=== PATIENT | female | born 1995 | race Caucasian/White ===

== ENCOUNTER 2016-08-26 00:44 | Emergency (ER) | payer MEDICAID, OTHER ==
[~2016-08-26] VITALS: Ht 165.1 cm; Wt 100.0 kg
[~2016-08-26 00:44] MED LIST: CARB200T6 PO; INSLAN SQ; INSU100C6 SQ; LISI-661 PO; VENL-193 PO
[2016-08-26] MEDS ORDERED: ASPI-1061 PO (01:05)
[2016-08-26] MEDS ORDERED: ASCO500T9 PO (01:05)
[2016-08-26] MEDS ORDERED: ATOR10TA69 PO (01:05)
[2016-08-26] MEDS ORDERED: INSLAN SQ (01:05)
[2016-08-26] MEDS ORDERED: LORA10I IM (01:09)
[2016-08-26] MEDS ORDERED: LACO200T2 PO (01:09)
[2016-08-26] MEDS ORDERED: VENL225T PO (01:09)
[2016-08-26] MEDS ORDERED: QUET50TA PO (01:09)
[2016-08-26 01:11] LABS: GLUCOSE,POINT OF CARE 250 MG/DL (70-110)
[2016-08-26 01:44] LABS: BASOPHILS % (AUTO) 0.3 % (0.0-2.0); EOSINOPHILS % (AUTO) 0.1 % (1.0-6.0); HEMATOCRIT 37.4 % (36-46); HEMOGLOBIN 12.7 g/dL (12.0-16.0); LYMPHOCYTES # (AUTO) 1.5 K/uL (1.0-4.8); LYMPHOCYTES % (AUTO) 32.6 % (22.0-44.0); MEAN CORPUSCULAR HEMOGLOBIN 32.8 pg (26.0-34.0); MEAN CORPUSCULAR HGB CONC 34.1 G/dL (31.0-37.0); MEAN CORPUSCULAR VOLUME 96 fL (80-100); MONOCYTES # (AUTO) 0.3 K/uL (0.1-1.0); MONOCYTES % (AUTO) 6.5 % (2.0-9.0); NEUTROPHILS # (AUTO) 2.9 K/uL (1.8-7.7); NEUTROPHILS % (AUTO) 60.5 % (40.0-70.0); PLATELET COUNT (AUTO) 228 K/uL (150-450); RED BLOOD CELL COUNT(AUTO) 3.88 MIL/uL (4.00-5.20); RED CELL DISTRIBUTION WIDTH 12.8 % (11.5-14.5); WHITE BLOOD COUNT (AUTO) 4.7 K/uL (4.5-11.0)
[2016-08-26] MEDS ORDERED: PHENYTOIN SODIUM 1,000 MG in SODIUM CHLORIDE 0.9% 150 ML IV ONE (02:00)
[2016-08-26 02:03] LABS: ANION GAP 6 mmol/L (8-16); CALCIUM, TOTAL 8.4 mg/dL (8.8-10.5); CARBON DIOXIDE 28 mmol/L (22-29); CHLORIDE 102 mmol/L (98-107); CREATININE 0.71 mg/dL (0.60-1.30); GLOMERULAR FILTR. RATE CALC > 60 mL/min (>60); POTASSIUM 4.7 mmol/L (3.5-5.1); SODIUM SERUM 136 mmol/L (136-145); UREA NITROGEN, BLOOD 14 mg/dL (7-18)
[2016-08-26] MEDS ORDERED: SODIUM CHLORIDE 0.9% 250 ML IV ONE (02:08)
[2016-08-26 02:10] LABS: ALANINE AMINOTRANSFERASE 21 U/L (12-78); ASPARTATE AMINOTRANSFERASE 30 U/L (15-37); BILIRUBIN,TOTAL 0.3 mg/dL (0.1-1.0); TOTAL PROTEIN, SERUM 6.4 g/dL (6.4-8.2)
[2016-08-26 02:13] LABS: APPEARANCE,URINE CLEAR (CLEAR); GLUCOSE, URINE (UA) >=1000 mg/dL (NEGATIVE); KETONES,URINE NEGATIVE (NEGATIVE); LEUKOCYTE ESTERASE ,URINE NEGATIVE (NEGATIVE); OCCULT BLOOD,URINE LARGE (NEGATIVE); PROTEIN,URINE NEGATIVE (NEGATIVE)
[2016-08-26 02:23] LABS: RBC,URINE 51-100 /HPF (0-2); SQUAMOUS EPITHELIAL CELL,UR Few /LPF (None Seen); WBC,URINE 0-2 /HPF (0-5)
[2016-08-26] MEDS ORDERED: MAGN200T5 PO (02:43)
[2016-08-26] MEDS ORDERED: FOLI400 PO (02:43)
[2016-08-26] MEDS ORDERED: NORG1TAB65 PO (02:43)
[2016-08-26] MEDS ORDERED: INSU100C14 SQ (02:43)
[2016-08-26] MEDS ORDERED: CALC-1009 PO (02:43)
[2016-08-26] MEDS ORDERED: ZOLP10TA2 PO (02:43)
[2016-08-26] MEDS ORDERED: LISI-618 PO (02:43)
[2016-08-26] MEDS ORDERED: CARB200T PO (02:43)
[2016-08-26] MEDS ORDERED: MIRT30TA6 PO (02:43)
[2016-08-26 03:27] VITALS: BP 130/69
== END 2016-08-26 04:22 | disposition home or self-care (01) ==
LOC: EMS 00:46
DX: G40.909 Epilepsy, unspecified, not intractable, without status epilepticus (principal); E11.65 Type 2 diabetes mellitus with hyperglycemia; F41.9 Anxiety disorder, unspecified; I10 Essential (primary) hypertension; Z79.4 Long term (current) use of insulin; Z79.82 Long term (current) use of aspirin
CPT/HCPCS: 36415; 80053; 80156; 80307; 81001; 82962; 84703; 85025; 93005; 96365; 99285; G0480; J1165; J7050 ×2

== ENCOUNTER 2016-11-24 10:34 | Emergency (ER) | payer MEDICAID ==
[~2016-11-24] VITALS: Ht 167.6 cm; Wt 100.0 kg
[~2016-11-24 10:34] MED LIST changes: +ASCO500T9 PO; +ASPI-1061 PO; +ATOR10TA69 PO; +CALC-1009 PO; +CARB200T PO; -CARB200T6 PO; +FOLI400 PO; +INSU100C14 SQ; -INSU100C6 SQ; +LACO200T2 PO; +LISI-618 PO; -LISI-661 PO; +LORA10I IM; +MAGN200T5 PO; +MIRT30TA6 PO; +NORG1TAB65 PO; +QUET50TA PO; -VENL-193 PO; +VENL225T PO; +ZOLP10TA2 PO
[2016-11-24 11:02] LABS: GLUCOSE,POINT OF CARE 224 MG/DL (70-110)
[2016-11-24] MEDS ORDERED: PHEN250I PO (11:02)
[2016-11-24] MEDS ORDERED: BISA5TAB12 PO (11:02)
[2016-11-24 11:10] LABS: BASOPHILS % (AUTO) 0.4 % (0.0-2.0); EOSINOPHILS % (AUTO) 0.6 % (1.0-6.0); HEMATOCRIT 36.6 % (36-46); HEMOGLOBIN 12.3 g/dL (12.0-16.0); LYMPHOCYTES # (AUTO) 0.9 K/uL (1.0-4.8); LYMPHOCYTES % (AUTO) 24.5 % (22.0-44.0); MEAN CORPUSCULAR HEMOGLOBIN 32.6 pg (26.0-34.0); MEAN CORPUSCULAR HGB CONC 33.7 G/dL (31.0-37.0); MEAN CORPUSCULAR VOLUME 97 fL (80-100); MONOCYTES # (AUTO) 0.2 K/uL (0.1-1.0); NEUTROPHILS # (AUTO) 2.5 K/uL (1.8-7.7); NEUTROPHILS % (AUTO) 69.5 % (40.0-70.0); PLATELET COUNT (AUTO) 219 K/uL (150-450); RED BLOOD CELL COUNT(AUTO) 3.77 MIL/uL (4.00-5.20); RED CELL DISTRIBUTION WIDTH 13.4 % (11.5-14.5); WHITE BLOOD COUNT (AUTO) 3.6 K/uL (4.5-11.0)
[2016-11-24] MEDS ORDERED: LACT30L PO (11:11)
[2016-11-24 11:21] LABS: ANION GAP 8 mmol/L (8-16); CALCIUM, TOTAL 8.5 mg/dL (8.8-10.5); CARBON DIOXIDE 29 mmol/L (22-29); CHLORIDE 103 mmol/L (98-107); CREATININE 0.79 mg/dL (0.60-1.30); GLOMERULAR FILTR. RATE CALC > 60 mL/min (>60); POTASSIUM 4.4 mmol/L (3.5-5.1); SODIUM SERUM 140 mmol/L (136-145); UREA NITROGEN, BLOOD 13 mg/dL (7-18)
[2016-11-24 11:27] LABS: ALANINE AMINOTRANSFERASE 25 U/L (12-78); ALBUMIN 3.2 g/dL (3.4-5.0); ASPARTATE AMINOTRANSFERASE 20 U/L (15-37); BILIRUBIN,TOTAL 0.3 mg/dL (0.1-1.0); TOTAL PROTEIN, SERUM 6.5 g/dL (6.4-8.2)
[2016-11-24 13:32] LABS: GLUCOSE,POINT OF CARE 151 MG/DL (70-110)
[2016-11-24] MEDS ORDERED: PHENY100 PO (13:53)
[2016-11-24] MEDS ORDERED: VENL-67 PO (13:53)
[2016-11-24 14:09] LABS: APPEARANCE,URINE CLEAR (CLEAR); GLUCOSE, URINE (UA) NEGATIVE (NEGATIVE); KETONES,URINE NEGATIVE (NEGATIVE); LEUKOCYTE ESTERASE ,URINE NEGATIVE (NEGATIVE); OCCULT BLOOD,URINE NEGATIVE (NEGATIVE); PH,URINE 6.5 (5.0-8.0); PROTEIN,URINE NEGATIVE (NEGATIVE)
[2016-11-24 14:15] LABS: ADD UA MICROSCOPIC NO
[2016-11-24 14:24] VITALS: BP 116/80
== END 2016-11-24 15:40 | disposition home or self-care (01) ==
LOC: EMS 10:35 → EEVIPCON 10:35 → EMS 15:40
DX: F32.9 Major depressive disorder, single episode, unspecified (principal); I10 Essential (primary) hypertension; E11.9 Type 2 diabetes mellitus without complications; Z79.82 Long term (current) use of aspirin; Z79.4 Long term (current) use of insulin
CPT/HCPCS: 36415; 80053; 80185; 80307; 81003; 82948; 82962; 84703; 85025; 99284; G0480

== ENCOUNTER 2017-09-19 20:02 | Emergency (ER) | payer MEDICAID ==
[~2017-09-19] VITALS: Ht 165.1 cm; Wt 102.7 kg
[~2017-09-19 20:02] MED LIST changes: -ASPI-1061 PO; +ASPI81TA33 PO; +BISA5TAB12 PO; +LACT30L PO; +PHENY100 PO; +VENL-67 PO; -VENL225T PO
[2017-09-19 21:00] LABS: BASOPHILS % (AUTO) 0.3 % (0.0-2.0); EOSINOPHILS % (AUTO) 0.1 % (1.0-6.0); HEMATOCRIT 37.7 % (36-46); HEMOGLOBIN 13.3 g/dL (12.0-16.0); LYMPHOCYTES # (AUTO) 1.2 K/uL (1.0-4.8); LYMPHOCYTES % (AUTO) 22.7 % (22.0-44.0); MEAN CORPUSCULAR HEMOGLOBIN 33.9 pg (26.0-34.0); MEAN CORPUSCULAR HGB CONC 35.3 G/dL (31.0-37.0); MEAN CORPUSCULAR VOLUME 96 fL (80-100); MONOCYTES # (AUTO) 0.3 K/uL (0.1-1.0); MONOCYTES % (AUTO) 6.7 % (2.0-9.0); NEUTROPHILS # (AUTO) 3.6 K/uL (1.8-7.7); NEUTROPHILS % (AUTO) 70.2 % (40.0-70.0); PLATELET COUNT (AUTO) 188 K/uL (150-450); RED BLOOD CELL COUNT(AUTO) 3.93 MIL/uL (4.00-5.20); RED CELL DISTRIBUTION WIDTH 12.6 % (11.5-14.5)
[2017-09-19 21:02] LABS: ANION GAP 9 mmol/L (8-16); CALCIUM, TOTAL 8.7 mg/dL (8.8-10.5); CARBON DIOXIDE 29 mmol/L (22-29); CHLORIDE 97 mmol/L (98-107); CREATININE 0.82 mg/dL (0.60-1.30); GLOMERULAR FILTR. RATE CALC > 60 mL/min (>60); GLUCOSE,RANDOM 279 mg/dL (70-110); POTASSIUM 4.1 mmol/L (3.5-5.1); SODIUM SERUM 135 mmol/L (136-145); UREA NITROGEN, BLOOD 14 mg/dL (7-18)
[2017-09-19 21:08] LABS: ALANINE AMINOTRANSFERASE 37 U/L (12-78); ALBUMIN 3.4 g/dL (3.4-5.0); ALKALINE PHOSPHATASE 88 U/L (46-116); ASPARTATE AMINOTRANSFERASE 24 U/L (15-37); BILIRUBIN,TOTAL 0.3 mg/dL (0.1-1.0); TOTAL PROTEIN, SERUM 6.6 g/dL (6.4-8.2)
[2017-09-19 21:09] LABS: AMPHET/METH SCREEN,URINE NEGATIVE (NEGATIVE); BARBITURATE SCREEN, URINE NEGATIVE (NEGATIVE); BENZODIAZEPINES SCREEN,URINE NEGATIVE (NEGATIVE); CANNABINOID SCREEN,URINE NEGATIVE (NEGATIVE); COCAINE SCREEN,URINE NEGATIVE (NEGATIVE); METHADONE SCREEN, URINE NEGATIVE (NEGATIVE); OPIATE SCREEN,URINE NEGATIVE (NEGATIVE)
[2017-09-19 21:10] LABS: PHENCYCLIDINE SCREEN,URINE NEGATIVE (NEGATIVE)
[2017-09-19 21:23] LABS: APPEARANCE,URINE CLEAR (CLEAR); BILIRUBIN,URINE NEGATIVE (NEGATIVE); GLUCOSE, URINE (UA) >=1000 mg/dL (NEGATIVE); KETONES,URINE 15 mg/dL (NEGATIVE); LEUKOCYTE ESTERASE ,URINE NEGATIVE (NEGATIVE); NITRATE,URINE NEGATIVE (NEGATIVE); OCCULT BLOOD,URINE NEGATIVE (NEGATIVE); PH,URINE 5.5 (5.0-8.0); PROTEIN,URINE NEGATIVE (NEGATIVE); UROBILINOGEN,URINE 0.2 mg/dL (<=1.0)
[2017-09-19 21:34] LABS: BACTERIA,URINE Rare /HPF (None Seen); RBC,URINE None Seen /HPF (0-2); WBC,URINE None Seen /HPF (0-5)
[2017-09-19 21:35] LABS: SQUAMOUS EPITHELIAL CELL,UR Few /LPF (None Seen)
[2017-09-19 22:03] LABS: GLUCOSE,POINT OF CARE 206 MG/DL (70-110)
[2017-09-19 22:44] VITALS: BP 120/64
== END 2017-09-19 22:45 | disposition home or self-care (01) ==
LOC: EMS 20:04
DX: E11.65 Type 2 diabetes mellitus with hyperglycemia (principal); F60.3 Borderline personality disorder; I10 Essential (primary) hypertension; Z79.4 Long term (current) use of insulin; Z79.82 Long term (current) use of aspirin; Z79.899 Other long term (current) drug therapy; Z88.8 Allergy status to other drugs, medicaments and biological substances
CPT/HCPCS: 36415; 80053; 80307; 81001; 82962; 85025; 99284; G0480

== ENCOUNTER 2017-11-05 22:42 | Emergency (ER) | payer MEDICAID ==
[~2017-11-05] VITALS: Ht 167.6 cm; Wt 90.9 kg
[~2017-11-05 22:42] MED LIST changes: -ASPI81TA33 PO; +ASPI81TA87 PO
[2017-11-05 22:58] LABS: GLUCOSE,POINT OF CARE 111 MG/DL (70-110)
[2017-11-05] MEDS ORDERED: LORA2TAB2 PO (23:04)
[2017-11-05 23:24] LABS: BASOPHILS % (AUTO) 0.5 % (0.0-2.0); EOSINOPHILS % (AUTO) 0.9 % (1.0-6.0); HEMATOCRIT 37.6 % (36-46); HEMOGLOBIN 13.2 g/dL (12.0-16.0); LYMPHOCYTES # (AUTO) 1.7 K/uL (1.0-4.8); LYMPHOCYTES % (AUTO) 43.1 % (22.0-44.0); MEAN CORPUSCULAR HEMOGLOBIN 34.3 pg (26.0-34.0); MEAN CORPUSCULAR HGB CONC 35.1 G/dL (31.0-37.0); MEAN CORPUSCULAR VOLUME 98 fL (80-100); MONOCYTES # (AUTO) 0.3 K/uL (0.1-1.0); NEUTROPHILS # (AUTO) 1.9 K/uL (1.8-7.7); NEUTROPHILS % (AUTO) 47.5 % (40.0-70.0); PLATELET COUNT (AUTO) 238 K/uL (150-450); RED BLOOD CELL COUNT(AUTO) 3.85 MIL/uL (4.00-5.20)
[2017-11-05 23:28] LABS: ANION GAP 6 mmol/L (8-16); CALCIUM, TOTAL 8.6 mg/dL (8.8-10.5); CARBON DIOXIDE 30 mmol/L (22-29); CHLORIDE 102 mmol/L (98-107); CREATININE 0.75 mg/dL (0.60-1.30); GLOMERULAR FILTR. RATE CALC > 60 mL/min (>60); GLUCOSE,RANDOM 99 mg/dL (70-110); SODIUM SERUM 138 mmol/L (136-145); UREA NITROGEN, BLOOD 9 mg/dL (7-18)
[2017-11-05 23:41] LABS: ALANINE AMINOTRANSFERASE 24 U/L (12-78); ALBUMIN 3.3 g/dL (3.4-5.0); ALKALINE PHOSPHATASE 92 U/L (46-116); ASPARTATE AMINOTRANSFERASE 20 U/L (15-37); BILIRUBIN,TOTAL 0.2 mg/dL (0.1-1.0); LIPASE 58 U/L (73-393); TOTAL PROTEIN, SERUM 6.8 g/dL (6.4-8.2)
[2017-11-06] MEDS ORDERED: ONDANSETRON HCL 4 MG TABLET PO ONE (03:15)
[2017-11-06 05:15] VITALS: BP 122/75
== END 2017-11-06 06:22 | disposition home or self-care (01) ==
LOC: EMS 22:43
DX: R19.7 Diarrhea, unspecified (principal); R11.2 Nausea with vomiting, unspecified; F55.2 Abuse of laxatives; K59.00 Constipation, unspecified; F29 Unspecified psychosis not due to a substance or known physiological condition; E11.9 Type 2 diabetes mellitus without complications; I10 Essential (primary) hypertension; Z88.8 Allergy status to other drugs, medicaments and biological substances; Z79.4 Long term (current) use of insulin
CPT/HCPCS: 80053; 82962; 83690; 84703; 85025; 99284; Q0162

== ENCOUNTER 2018-04-17 00:33 | Emergency (ER) | payer MEDICAID ==
[~2018-04-17] VITALS: Ht 167.6 cm; Wt 90.9 kg
[~2018-04-17 00:33] MED LIST changes: -LACO200T2 PO; -LORA10I IM; +LORA2TAB2 PO; -NORG1TAB65 PO
[2018-04-17 00:53] LABS: GLUCOSE,POINT OF CARE 127 MG/DL (70-110)
[2018-04-17] MEDS ORDERED: HYDR25SU38 PR (01:00)
[2018-04-17] MEDS ORDERED: DSS100 PO (01:00)
[2018-04-17] MEDS ORDERED: INSU100V SQ (01:00)
[2018-04-17] MEDS ORDERED: MOME17N NASAL (01:00)
[2018-04-17] MEDS ORDERED: 7030E SQ (01:00)
[2018-04-17] MEDS ORDERED: LORA10I IM (01:00)
[2018-04-17] MEDS ORDERED: DIPH50 PO ×2 (01:00)
[2018-04-17] MEDS ORDERED: NORG1TAB65 PO (01:00)
[2018-04-17] MEDS ORDERED: FAMO20 PO (01:00)
[2018-04-17] MEDS ORDERED: METF-960 PO (01:00)
[2018-04-17] MEDS ORDERED: ACETAMINOPHEN 500 MG TABLET PO ONE (01:30)
[2018-04-17 02:19] LABS: GLUCOSE,POINT OF CARE 36 MG/DL (70-110)
[2018-04-17 02:29] VITALS: BP 120/64
[2018-04-17 02:54] LABS: GLUCOSE,POINT OF CARE 119 MG/DL (70-110)
== END 2018-04-17 05:25 | disposition home or self-care (01) ==
LOC: EMS 00:34
DX: S60.221A Contusion of right hand, initial encounter (principal); S80.12XA Contusion of left lower leg, initial encounter; S80.11XA Contusion of right lower leg, initial encounter; E11.649 Type 2 diabetes mellitus with hypoglycemia without coma; F69 Unspecified disorder of adult personality and behavior; I10 Essential (primary) hypertension; F60.3 Borderline personality disorder; Z88.8 Allergy status to other drugs, medicaments and biological substances; Z79.4 Long term (current) use of insulin; Z79.899 Other long term (current) drug therapy; Z79.82 Long term (current) use of aspirin; W22.01XA Walked into wall, initial encounter; Y93.89 Activity, other specified; Y92.89 Other specified places as the place of occurrence of the external cause; Y99.8 Other external cause status
CPT/HCPCS: 99284

== ENCOUNTER 2018-05-26 20:46 | Emergency (ER) | payer MEDICAID ==
[~2018-05-26] VITALS: Ht 167.6 cm; Wt 88.6 kg
[~2018-05-26 20:46] MED LIST changes: +7030E SQ; +DIPH50 PO; +DSS100 PO; +FAMO20 PO; +HYDR25SU38 PR; +INSU100V SQ; +LORA10I IM; -LORA2TAB2 PO; +METF-960 PO; +MOME17N NASAL; +NORG1TAB65 PO
[2018-05-26] MEDS ORDERED: BRIV50TA PO (21:21)
[2018-05-26] MEDS ORDERED: 7030E SQ (21:22)
[2018-05-26] MEDS ORDERED: ASCO500T9 PO (21:22)
[2018-05-26] MEDS ORDERED: INSULIN HUMAN NPH-REGULAR 70/30 100 UNITS/ML SQ ONE (21:45)
[2018-05-26] MEDS ORDERED: MetFORMIN HCL 500 MG TABLET PO ONE (21:45)
[2018-05-26] MEDS ORDERED: MIRTAZAPINE 30 MG TABLET PO ONE (21:45)
[2018-05-26] MEDS ORDERED: LORazepam 2 MG TABLET PO ONE (21:45)
[2018-05-26 21:54] LABS: BASOPHILS % (AUTO) 0.6 % (0.0-2.0); EOSINOPHILS % (AUTO) 1.2 % (1.0-6.0); HEMATOCRIT 39.8 % (36-46); HEMOGLOBIN 13.6 g/dL (12.0-16.0); LYMPHOCYTES # (AUTO) 1.5 K/uL (1.0-4.8); LYMPHOCYTES % (AUTO) 35.2 % (22.0-44.0); MEAN CORPUSCULAR HGB CONC 34.2 G/dL (31.0-37.0); MEAN CORPUSCULAR VOLUME 99 fL (80-100); MONOCYTES # (AUTO) 0.2 K/uL (0.1-1.0); MONOCYTES % (AUTO) 5.4 % (2.0-9.0); NEUTROPHILS # (AUTO) 2.4 K/uL (1.8-7.7); NEUTROPHILS % (AUTO) 57.6 % (40.0-70.0); PLATELET COUNT (AUTO) 284 K/uL (150-450); RED BLOOD CELL COUNT(AUTO) 4.01 MIL/uL (4.00-5.20); RED CELL DISTRIBUTION WIDTH 12.6 % (11.5-14.5)
[2018-05-26 21:56] LABS: ANION GAP 3 mmol/L (8-16); CALCIUM, TOTAL 8.2 mg/dL (8.8-10.5); CARBON DIOXIDE 32 mmol/L (22-29); CHLORIDE 99 mmol/L (98-107); CREATININE 0.88 mg/dL (0.60-1.30); GLOMERULAR FILTR. RATE CALC > 60 mL/min (>60); GLUCOSE,RANDOM 311 mg/dL (70-110); POTASSIUM 4.3 mmol/L (3.5-5.1); SODIUM SERUM 134 mmol/L (136-145); UREA NITROGEN, BLOOD 10 mg/dL (7-18)
[2018-05-26 21:57] LABS: APPEARANCE,URINE CLEAR (CLEAR); BILIRUBIN,URINE NEGATIVE (NEGATIVE); GLUCOSE, URINE (UA) >=1000 mg/dL (NEGATIVE); KETONES,URINE NEGATIVE (NEGATIVE); LEUKOCYTE ESTERASE ,URINE NEGATIVE (NEGATIVE); NITRATE,URINE NEGATIVE (NEGATIVE); OCCULT BLOOD,URINE NEGATIVE (NEGATIVE); PH,URINE 6.5 (5.0-8.0); PROTEIN,URINE NEGATIVE (NEGATIVE); UROBILINOGEN,URINE 0.2 mg/dL (<=1.0)
[2018-05-26 22:02] LABS: ALANINE AMINOTRANSFERASE 39 U/L (12-78); ALBUMIN 3.3 g/dL (3.4-5.0); ALKALINE PHOSPHATASE 91 U/L (46-116); ASPARTATE AMINOTRANSFERASE 37 U/L (15-37); BILIRUBIN,TOTAL 0.2 mg/dL (0.1-1.0); CARBAMAZEPINE (TEGRETOL) 3.7 mcg/mL (4.0-12.0); PHENYTOIN (DILANTIN) 15.8 mcg/mL (10.0-20.0)
[2018-05-26 22:08] LABS: AMPHET/METH SCREEN,URINE NEGATIVE (NEGATIVE); BARBITURATE SCREEN, URINE NEGATIVE (NEGATIVE); BENZODIAZEPINES SCREEN,URINE NEGATIVE (NEGATIVE); CANNABINOID SCREEN,URINE NEGATIVE (NEGATIVE); COCAINE SCREEN,URINE NEGATIVE (NEGATIVE); METHADONE SCREEN, URINE NEGATIVE (NEGATIVE); OPIATE SCREEN,URINE NEGATIVE (NEGATIVE)
[2018-05-26 22:10] LABS: BACTERIA,URINE Few /HPF (None Seen); SQUAMOUS EPITHELIAL CELL,UR Moderate /LPF (None Seen)
[2018-05-26 22:11] LABS: RBC,URINE None Seen /HPF (0-2); WBC,URINE 0-2 /HPF (0-5)
[2018-05-26 22:13] LABS: PHENCYCLIDINE SCREEN,URINE NEGATIVE (NEGATIVE)
[2018-05-26] MEDS ORDERED: PHENYTOIN SODIUM 100 MG ER CAPSULE PO ONE (22:15)
[2018-05-26] MEDS ORDERED: CarBAMazepine 200 MG TABLET PO ONE (22:15)
[2018-05-26 23:47] LABS: GLUCOSE,POINT OF CARE 256 MG/DL (70-110)
[2018-05-27 01:32] VITALS: BP 107/69
== END 2018-05-27 01:48 | disposition home or self-care (01) ==
LOC: EMS 20:48
DX: E11.65 Type 2 diabetes mellitus with hyperglycemia (principal); F41.9 Anxiety disorder, unspecified; R53.1 Weakness; I10 Essential (primary) hypertension; E11.9 Type 2 diabetes mellitus without complications; F32.9 Major depressive disorder, single episode, unspecified; Z79.4 Long term (current) use of insulin; Z79.82 Long term (current) use of aspirin; Z88.8 Allergy status to other drugs, medicaments and biological substances; Z79.899 Other long term (current) drug therapy
CPT/HCPCS: 36415; 80053; 80156; 80185; 80307; 81001; 82962; 84703; 85025; 96372; 99284; J1815

== ENCOUNTER 2018-07-20 15:10 | Emergency (ER) | payer MEDICAID ==
[~2018-07-20] VITALS: Ht 167.6 cm; Wt 100.0 kg
[~2018-07-20 15:10] MED LIST changes: +BRIV50TA PO; -DSS100 PO; -FAMO20 PO; -INSLAN SQ; -INSU100V SQ; -QUET50TA PO
[2018-07-20] MEDS ORDERED: FOLI0.8T PO (15:43)
[2018-07-20] MEDS ORDERED: ONDA4 PO (15:43)
[2018-07-20] MEDS ORDERED: INSLAN SQ (15:43)
[2018-07-20] MEDS ORDERED: DIPH25 PO (16:01)
[2018-07-20] MEDS ORDERED: PROM25 PO (16:01)
[2018-07-20] MEDS ORDERED: IBUP-2071 PO (16:01)
[2018-07-20] MEDS ORDERED: METF-445 PO (16:01)
[2018-07-20] MEDS ORDERED: FAMO20 PO (16:01)
[2018-07-20] MEDS ORDERED: GLIP5 PO (16:01)
[2018-07-20] MEDS ORDERED: KETO5DRO75 OU (16:01)
[2018-07-20] MEDS ORDERED: HYPR15DR23 OU (16:01)
[2018-07-20] MEDS ORDERED: GUAI100L55 PO (16:01)
[2018-07-20] MEDS ORDERED: BENZ1LOZ68 PO (16:01)
[2018-07-20] MEDS ORDERED: MOM30 PO (16:02)
[2018-07-20] MEDS ORDERED: LOPE2 PO (16:02)
[2018-07-20] MEDS ORDERED: ASCO500 PO (16:02)
[2018-07-20] MEDS ORDERED: SIME125C PO (16:02)
[2018-07-20] MEDS ORDERED: FE PR (16:02)
[2018-07-20] MEDS ORDERED: CARB15DR94 OU (16:02)
[2018-07-20] MEDS ORDERED: ACET-2247 PO (16:02)
[2018-07-20] MEDS ORDERED: MULT-264 PO (16:02)
[2018-07-20] MEDS: DICYCLOMINE HCL 20 MG TABLET PO ONE (16:24)
[2018-07-20] MEDS: SODIUM CHLORIDE 0.9% 1,000 ML IV ONE ×2 (16:24→18:54)
[2018-07-20] MEDS: METOCLOPRAMIDE HCL 5 MG/ML 2 ML VIAL IVP ONE (16:24)
[2018-07-20 16:38] LABS: EOSINOPHILS % (AUTO) 0.1 % (1.0-6.0); HEMATOCRIT 41.5 % (36-46); HEMOGLOBIN 14.5 g/dL (12.0-16.0); LYMPHOCYTES # (AUTO) 0.2 K/uL (1.0-4.8); LYMPHOCYTES % (AUTO) 3.1 % (22.0-44.0); MEAN CORPUSCULAR HEMOGLOBIN 34.7 pg (26.0-34.0); MEAN CORPUSCULAR HGB CONC 35.1 G/dL (31.0-37.0); MEAN CORPUSCULAR VOLUME 99 fL (80-100); MONOCYTES # (AUTO) 0.2 K/uL (0.1-1.0); MONOCYTES % (AUTO) 3.3 % (2.0-9.0); NEUTROPHILS # (AUTO) 5.7 K/uL (1.8-7.7); PLATELET COUNT (AUTO) 232 K/uL (150-450); RED CELL DISTRIBUTION WIDTH 12.9 % (11.5-14.5)
[2018-07-20 16:40] LABS: NEUTROPHILS % (AUTO) 93.5 % (40.0-70.0)
[2018-07-20 16:45] LABS: ANION GAP 8 mmol/L (8-16); CALCIUM, TOTAL 8.2 mg/dL (8.8-10.5); CARBON DIOXIDE 29 mmol/L (22-29); CHLORIDE 102 mmol/L (98-107); CREATININE 0.57 mg/dL (0.60-1.30); GLOMERULAR FILTR. RATE CALC > 60 mL/min (>60); GLUCOSE,RANDOM 140 mg/dL (70-110); POTASSIUM 4.2 mmol/L (3.5-5.1); SODIUM SERUM 139 mmol/L (136-145); UREA NITROGEN, BLOOD 15 mg/dL (7-18)
[2018-07-20 16:58] LABS: ALANINE AMINOTRANSFERASE 32 U/L (12-78); ALBUMIN 3.3 g/dL (3.4-5.0); ALKALINE PHOSPHATASE 75 U/L (46-116); ASPARTATE AMINOTRANSFERASE 27 U/L (15-37); BILIRUBIN,TOTAL 0.3 mg/dL (0.1-1.0); HCG,QUANTITATIVE < 1 mIU/mL (0-6); LIPASE 60 U/L (73-393); TOTAL PROTEIN, SERUM 6.3 g/dL (6.4-8.2)
[2018-07-20 18:19] LABS: APPEARANCE,URINE CLEAR (CLEAR); GLUCOSE, URINE (UA) NEGATIVE (NEGATIVE); KETONES,URINE >=80 mg/dL (NEGATIVE); LEUKOCYTE ESTERASE ,URINE TRACE (NEGATIVE); NITRATE,URINE NEGATIVE (NEGATIVE); OCCULT BLOOD,URINE NEGATIVE (NEGATIVE); PH,URINE 7.5 (5.0-8.0); PROTEIN,URINE TRACE (NEGATIVE); UROBILINOGEN,URINE 0.2 mg/dL (<=1.0)
[2018-07-20 18:20] LABS: BILIRUBIN,URINE PRELIM. POSITIVE (NEGATIVE)
[2018-07-20 18:40] LABS: RBC,URINE None Seen /HPF (0-2); WBC,URINE 0-2 /HPF (0-5)
[2018-07-20 18:41] LABS: BACTERIA,URINE None Seen /HPF (None Seen); SQUAMOUS EPITHELIAL CELL,UR Moderate /LPF (None Seen)
[2018-07-20] MEDS ORDERED: MAGOX PO (19:03)
[2018-07-20 19:46] VITALS: BP 106/69
[2018-07-20] MEDS: ONDANSETRON HCL 4 MG/2 ML VIAL IVP ONE (19:55)
== END 2018-07-20 19:52 | disposition home or self-care (01) ==
LOC: EMS 15:10
DX: E86.0 Dehydration (principal); G43.909 Migraine, unspecified, not intractable, without status migrainosus; E11.9 Type 2 diabetes mellitus without complications; I10 Essential (primary) hypertension; F32.9 Major depressive disorder, single episode, unspecified; Z79.899 Other long term (current) drug therapy; Z79.82 Long term (current) use of aspirin; Z79.4 Long term (current) use of insulin; Z88.8 Allergy status to other drugs, medicaments and biological substances; Z79.84 Long term (current) use of oral hypoglycemic drugs
CPT/HCPCS: 36415; 80053; 81001; 83690; 84702; 85025; 96361; 96374; 96375; 99283; J2405; J2765; J7030

== ENCOUNTER 2018-08-04 16:11 | Emergency (ER) | payer MEDICAID ==
[~2018-08-04] VITALS: Ht 167.6 cm; Wt 86.4 kg
[~2018-08-04 16:11] MED LIST changes: -7030E SQ; +ACET-2247 PO; +ASCO500 PO; -ASCO500T9 PO; +BENZ1LOZ68 PO; +CARB15DR94 OU; +DIPH25 PO; -DIPH50 PO; +FAMO20 PO; +FE PR; +FOLI0.8T PO; -FOLI400 PO; +GLIP5 PO; +GUAI100L55 PO; +HYPR15DR23 OU; +IBUP-2071 PO; +INSLAN SQ; +KETO5DRO75 OU; +LOPE2 PO; -MAGN200T5 PO; +MAGOX PO; +METF-445 PO; -METF-960 PO; +MOM30 PO; +MULT-264 PO; +ONDA4 PO; +PROM25 PO; +SIME125C PO
[2018-08-04] MEDS ORDERED: IBUPROFEN 800 MG TABLET PO ONE (19:30)
[2018-08-04 19:43] VITALS: BP 118/71
== END 2018-08-04 19:47 | disposition home or self-care (01) ==
LOC: EMS 16:11
DX: S60.211A Contusion of right wrist, initial encounter (principal); S00.83XA Contusion of other part of head, initial encounter; I10 Essential (primary) hypertension; E11.9 Type 2 diabetes mellitus without complications; Z88.8 Allergy status to other drugs, medicaments and biological substances; Z79.4 Long term (current) use of insulin; Z79.899 Other long term (current) drug therapy; W22.8XXA Striking against or struck by other objects, initial encounter; Y93.89 Activity, other specified; Y92.89 Other specified places as the place of occurrence of the external cause; Y99.8 Other external cause status

== ENCOUNTER 2018-10-08 14:43 | Inpatient (IN) | payer MEDICAID ==
[~2018-10-08] VITALS: Ht 162.6 cm; Wt 90.2 kg
[2018-10-08 17:26] LABS: BASOPHILS % (AUTO) 0.5 % (0.0-2.0); EOSINOPHILS % (AUTO) 1.6 % (1.0-6.0); HEMATOCRIT 36.3 % (36-46); HEMOGLOBIN 12.4 g/dL (12.0-16.0); LYMPHOCYTES # (AUTO) 1.4 K/uL (1.0-4.8); MEAN CORPUSCULAR HEMOGLOBIN 33.9 pg (26.0-34.0); MEAN CORPUSCULAR HGB CONC 34.3 G/dL (31.0-37.0); MEAN CORPUSCULAR VOLUME 99 fL (80-100); MONOCYTES # (AUTO) 0.3 K/uL (0.1-1.0); MONOCYTES % (AUTO) 7.6 % (2.0-9.0); NEUTROPHILS # (AUTO) 2.1 K/uL (1.8-7.7); NEUTROPHILS % (AUTO) 54.3 % (40.0-70.0); PLATELET COUNT (AUTO) 244 K/uL (150-450); RED BLOOD CELL COUNT(AUTO) 3.67 MIL/uL (4.00-5.20); RED CELL DISTRIBUTION WIDTH 13.2 % (11.5-14.5)
[2018-10-08 17:27] LABS: ANION GAP 7 mmol/L (8-16); CALCIUM, TOTAL 8.7 mg/dL (8.8-10.5); CARBON DIOXIDE 28 mmol/L (22-29); CHLORIDE 102 mmol/L (98-107); CREATININE 0.55 mg/dL (0.60-1.30); GLOMERULAR FILTR. RATE CALC > 60 mL/min (>60); GLUCOSE,RANDOM 116 mg/dL (70-110); SODIUM SERUM 137 mmol/L (136-145); UREA NITROGEN, BLOOD 9 mg/dL (7-18)
[2018-10-08 17:48] LABS: ALANINE AMINOTRANSFERASE 30 U/L (12-78); ALBUMIN 3.3 g/dL (3.4-5.0); ALKALINE PHOSPHATASE 72 U/L (46-116); ASPARTATE AMINOTRANSFERASE 30 U/L (15-37); BILIRUBIN,TOTAL 0.2 mg/dL (0.1-1.0); HCG,QUANTITATIVE < 1 mIU/mL (0-6); TOTAL PROTEIN, SERUM 6.1 g/dL (6.4-8.2)
[2018-10-08 18:33] LABS: PHENYTOIN (DILANTIN) 14.2 mcg/mL (10.0-20.0)
[2018-10-08] MEDS ORDERED: SODIUM CHLORIDE 0.9% 100 ML ONE (21:12)
[2018-10-08] MEDS ORDERED: IOVERSOL 320 MG/ML 100 ML VIAL ONE (21:12)
[2018-10-08] MEDS ORDERED: SODIUM CHLORIDE 0.9% 1,000 ML IV ONE (21:15)
[2018-10-08 21:32] LABS: INR 0.9 (0.9-1.1); PROTHROMBIN TIME 9.5 SEC (9.4-11.6)
[2018-10-08 21:44] LABS: AMPHET/METH SCREEN,URINE NEGATIVE (NEGATIVE); BARBITURATE SCREEN, URINE NEGATIVE (NEGATIVE); BENZODIAZEPINES SCREEN,URINE NEGATIVE (NEGATIVE); CANNABINOID SCREEN,URINE NEGATIVE (NEGATIVE); COCAINE SCREEN,URINE NEGATIVE (NEGATIVE); METHADONE SCREEN, URINE NEGATIVE (NEGATIVE); OPIATE SCREEN,URINE NEGATIVE (NEGATIVE)
[2018-10-08 21:47] LABS: PHENCYCLIDINE SCREEN,URINE NEGATIVE (NEGATIVE)
[2018-10-09] MEDS ORDERED: POTASSIUM CHL 20 MEQ/D5-0.45NS 1,000 ML IV ONE (02:45)
[2018-10-09] MEDS ORDERED: ONDANSETRON HCL 4 MG/2 ML VIAL IVP PRN ×2 (02:45→10:15)
[2018-10-09] MEDS ORDERED: 0.9% SODIUM CHLORIDE 10 ML SYRINGE IVP PRN ×2 (02:45→10:15)
[2018-10-09 03:48] VITALS: BP 109/60
[2018-10-09 07:52] VITALS: BP 113/71
[2018-10-09] MEDS: INSULIN GLARGINE,HUM.REC.ANLOG 100 UNITS/ML SQ SCH ×2 (10:15→23:02)
[2018-10-09] MEDS ORDERED: VENLAFAXINE HCL 75 MG ER CAPSULE PO SCH (10:15)
[2018-10-09] MEDS ORDERED: [UNRECOGNIZED DRUG - OTHER] PO SCH (10:15)
[2018-10-09] MEDS ORDERED: INSULIN LISPRO 100 UNITS/ML SQ PRN (10:15)
[2018-10-09] MEDS ORDERED: GLUCAGON,HUMAN RECOMBINANT 1 MG VIAL IM PRN (10:15)
[2018-10-09] MEDS ORDERED: LORAZEPAM 2 MG/ML IV PRN (10:15)
[2018-10-09] MEDS ORDERED: FentaNYL CITRATE-PF 100 MCG/2 ML VIAL IVP PRN (10:30)
[2018-10-09] MEDS ORDERED: PEG 3350/NA SULF,BICARB,CL/KCL 4000 ML SOLUTION PO ONE (11:30)
[2018-10-09] MEDS ORDERED: LORazepam 2 MG/ML VIAL IVP PRN (11:30)
[2018-10-09] MEDS ORDERED: DEXTROSE 50%-WATER 25 GM/50 ML SYRINGE IVP PRN (11:30)
[2018-10-09] MEDS ORDERED: FentaNYL CITRATE-PF 100 MCG/2 ML VIAL IVP ONE (12:00)
[2018-10-09] MEDS ORDERED: MIDAZOLAM HCL 2 MG/2 ML VIAL IVP ONE (12:00)
[2018-10-09] MEDS ORDERED: PROPOFOL 1% 20 ML VIAL IVP ONE (12:00)
[2018-10-09] MEDS ORDERED: ONDANSETRON HCL 4 MG/2 ML VIAL IVP ONE (12:00)
[2018-10-09] MEDS ORDERED: LIDOCAINE/PF 2% 5 ML VIAL INJ ONE (12:00)
[2018-10-09] MEDS ORDERED: SUCCINYLCHOLINE CHLORIDE 20 MG/ML 10 ML VIAL IVP ONE (12:00)
[2018-10-09] MEDS ORDERED: DEXAMETHASONE SOD PHOS 4 MG/ML VIAL IVP ONE (12:00)
[2018-10-09 13:14] VITALS: BP 112/71
[2018-10-09] MEDS: LISINOPRIL 20 MG TABLET PO SCH (13:28)
[2018-10-09] MEDS: PHENYTOIN SODIUM 100 MG ER CAPSULE PO SCH (13:28)
[2018-10-09] MEDS: PANTOPRAZOLE SODIUM 40 MG/VIAL IVP SCH (13:29)
[2018-10-09 15:34] VITALS: BP 110/69
[2018-10-09] MEDS ORDERED: LORazepam 2 MG TABLET PO PRN (16:15)
[2018-10-09] MEDS ORDERED: HALOPERIDOL 5 MG TABLET PO PRN (16:15)
[2018-10-09] MEDS ORDERED: ZOLPIDEM TARTRATE 10 MG TABLET PO PRN (16:15)
[2018-10-09] MEDS ORDERED: MetFORMIN HCL 850 MG TABLET PO SCH (18:00)
[2018-10-09] MEDS: INSULIN LISPRO 100 UNITS/ML SQ PRN (18:11)
[2018-10-09] MEDS ORDERED: INSULIN LISPRO 100 UNITS/ML SQ ONE (18:15)
[2018-10-09] MEDS: LevETIRAcetam 500 MG TABLET PO SCH (19:58)
[2018-10-09] MEDS: ATORVASTATIN CALCIUM 10 MG TABLET PO SCH (19:58)
[2018-10-09] MEDS: OXYGEN THERAPY IH SCH (20:00)
[2018-10-09 20:08] LABS: GLUCOMETER DEV NAME(LOC) 6N.2; GLUCOSE,POINT OF CARE 520 MG/DL (70-110)
[2018-10-09] MEDS ORDERED: ZOLPIDEM TARTRATE 10 MG TABLET PO SCH (21:00)
[2018-10-09] MEDS ORDERED: MIRTAZAPINE 30 MG TABLET PO SCH (21:00)
[2018-10-09 23:15] VITALS: BP 97/49
[2018-10-09 23:53] LABS: GLUCOMETER DEV NAME(LOC) 5S.2; GLUCOSE,POINT OF CARE 203 MG/DL (70-110)
[2018-10-10 05:32] VITALS: BP 92/52
[2018-10-10 07:39] VITALS: BP 86/50
[2018-10-10] MEDS: ASPIRIN 81 MG EC TABLET PO SCH (08:45)
[2018-10-10] MEDS: LevETIRAcetam 500 MG TABLET PO SCH ×2 (08:45→19:37)
[2018-10-10] MEDS: CarBAMazepine 200 MG TABLET PO SCH (08:45)
[2018-10-10] MEDS: VENLAFAXINE HCL 75 MG ER CAPSULE PO SCH (08:46)
[2018-10-10] MEDS: PANTOPRAZOLE SODIUM 40 MG/VIAL IVP SCH (08:46)
[2018-10-10] MEDS: ARIPiprazole 10 MG TABLET PO SCH (08:46)
[2018-10-10] MEDS: LISINOPRIL 20 MG TABLET PO SCH (09:00)
[2018-10-10] MEDS: INSULIN GLARGINE,HUM.REC.ANLOG 100 UNITS/ML SQ SCH ×2 (09:44→21:39)
[2018-10-10] MEDS: PHENYTOIN SODIUM 100 MG ER CAPSULE PO SCH (09:47)
[2018-10-10 11:19] LABS: BASOPHILS % (AUTO) 0.3 % (0.0-2.0); EOSINOPHILS % (AUTO) 1.2 % (1.0-6.0); HEMATOCRIT 35.9 % (36-46); HEMOGLOBIN 12.2 g/dL (12.0-16.0); LYMPHOCYTES # (AUTO) 0.8 K/uL (1.0-4.8); LYMPHOCYTES % (AUTO) 22.6 % (22.0-44.0); MEAN CORPUSCULAR HEMOGLOBIN 33.8 pg (26.0-34.0); MEAN CORPUSCULAR HGB CONC 33.9 G/dL (31.0-37.0); MEAN CORPUSCULAR VOLUME 100 fL (80-100); MONOCYTES # (AUTO) 0.1 K/uL (0.1-1.0); MONOCYTES % (AUTO) 3.7 % (2.0-9.0); NEUTROPHILS # (AUTO) 2.7 K/uL (1.8-7.7); NEUTROPHILS % (AUTO) 72.2 % (40.0-70.0); PLATELET COUNT (AUTO) 212 K/uL (150-450)
[2018-10-10 11:35] VITALS: BP 94/51
[2018-10-10 11:48] LABS: GLUCOMETER DEV NAME(LOC) 5N.2; GLUCOSE,POINT OF CARE 127 MG/DL (70-110)
[2018-10-10] MEDS: INSULIN LISPRO 100 UNITS/ML SQ PRN ×3 (12:41→21:41)
[2018-10-10 13:34] LABS: GLUCOMETER DEV NAME(LOC) 5N.2; GLUCOSE,POINT OF CARE 315 MG/DL (70-110)
[2018-10-10 16:32] VITALS: BP 99/52
[2018-10-10 18:38] LABS: GLUCOMETER DEV NAME(LOC) 5S.2; GLUCOSE,POINT OF CARE 216 MG/DL (70-110)
[2018-10-10 19:15] VITALS: BP 116/66
[2018-10-10] MEDS: MIRTAZAPINE 15 MG TABLET PO SCH (19:37)
[2018-10-10] MEDS: ATORVASTATIN CALCIUM 10 MG TABLET PO SCH (19:37)
[2018-10-10 23:19] LABS: GLUCOMETER DEV NAME(LOC) 5N.2; GLUCOSE,POINT OF CARE 360 MG/DL (70-110)
[2018-10-10 23:22] VITALS: BP 114/64
[2018-10-11] MEDS: INSULIN LISPRO 100 UNITS/ML SQ PRN ×4 (05:54→20:14)
[2018-10-11 06:23] LABS: ANION GAP 7 mmol/L (8-16); CALCIUM, TOTAL 8.5 mg/dL (8.8-10.5); CARBON DIOXIDE 28 mmol/L (22-29); CHLORIDE 102 mmol/L (98-107); CREATININE 0.57 mg/dL (0.60-1.30); GLOMERULAR FILTR. RATE CALC > 60 mL/min (>60); GLUCOSE,RANDOM 148 mg/dL (70-110); POTASSIUM 4.4 mmol/L (3.5-5.1); SODIUM SERUM 137 mmol/L (136-145); UREA NITROGEN, BLOOD 3 mg/dL (7-18)
[2018-10-11 07:29] LABS: GLUCOMETER DEV NAME(LOC) 5N.2; GLUCOSE,POINT OF CARE 170 MG/DL (70-110)
[2018-10-11 07:36] VITALS: BP 110/67
[2018-10-11] MEDS: PHENYTOIN SODIUM 100 MG ER CAPSULE PO SCH (08:30)
[2018-10-11] MEDS: PANTOPRAZOLE SODIUM 40 MG/VIAL IVP SCH (08:30)
[2018-10-11] MEDS: ASPIRIN 81 MG EC TABLET PO SCH (08:30)
[2018-10-11] MEDS: ARIPiprazole 10 MG TABLET PO SCH (08:30)
[2018-10-11] MEDS: VENLAFAXINE HCL 75 MG ER CAPSULE PO SCH (08:31)
[2018-10-11] MEDS: LISINOPRIL 20 MG TABLET PO SCH (08:31)
[2018-10-11] MEDS: CarBAMazepine 200 MG TABLET PO SCH (08:31)
[2018-10-11] MEDS: LevETIRAcetam 500 MG TABLET PO SCH ×2 (08:31→20:12)
[2018-10-11] MEDS: INSULIN GLARGINE,HUM.REC.ANLOG 100 UNITS/ML SQ SCH ×2 (08:55→20:16)
[2018-10-11] MEDS: TraMADol HCL 50 MG TABLET PO PRN ×2 (08:55→18:06)
[2018-10-11 09:49] LABS: BASOPHILS % (AUTO) 0.6 % (0.0-2.0); EOSINOPHILS % (AUTO) 0.7 % (1.0-6.0); HEMATOCRIT 35.4 % (36-46); HEMOGLOBIN 11.9 g/dL (12.0-16.0); LYMPHOCYTES # (AUTO) 0.9 K/uL (1.0-4.8); LYMPHOCYTES % (AUTO) 27.8 % (22.0-44.0); MEAN CORPUSCULAR HEMOGLOBIN 33.9 pg (26.0-34.0); MEAN CORPUSCULAR HGB CONC 33.7 G/dL (31.0-37.0); MEAN CORPUSCULAR VOLUME 101 fL (80-100); MONOCYTES # (AUTO) 0.2 K/uL (0.1-1.0); MONOCYTES % (AUTO) 7.5 % (2.0-9.0); NEUTROPHILS % (AUTO) 63.4 % (40.0-70.0); PLATELET COUNT (AUTO) 220 K/uL (150-450); RED BLOOD CELL COUNT(AUTO) 3.52 MIL/uL (4.00-5.20)
[2018-10-11 11:23] VITALS: BP 99/57
[2018-10-11] MEDS ORDERED: INSULIN LISPRO 100 UNITS/ML SQ ONE (12:00)
[2018-10-11] MEDS ORDERED: DEXTROSE 50%-WATER 25 GM/50 ML SYRINGE IVP PRN (14:30)
[2018-10-11 16:59] VITALS: BP 111/65
[2018-10-11 19:45] VITALS: BP 109/63
[2018-10-11] MEDS: OXYGEN THERAPY IH SCH (20:00)
[2018-10-11 20:11] LABS: GLUCOMETER DEV NAME(LOC) 5S.2; GLUCOSE,POINT OF CARE 562 MG/DL (70-110)
[2018-10-11 20:11] LABS: GLUCOMETER DEV NAME(LOC) 5S.2; GLUCOSE,POINT OF CARE 188 MG/DL (70-110)
[2018-10-11] MEDS: MIRTAZAPINE 15 MG TABLET PO SCH (20:12)
[2018-10-11] MEDS: ATORVASTATIN CALCIUM 10 MG TABLET PO SCH (20:12)
[2018-10-11 20:35] LABS: GLUCOMETER DEV NAME(LOC) 5S.2; GLUCOSE,POINT OF CARE 179 MG/DL (70-110)
[2018-10-11 23:30] VITALS: BP 112/60
[2018-10-12 04:45] VITALS: BP 108/56
[2018-10-12] MEDS: INSULIN LISPRO 100 UNITS/ML SQ PRN ×4 (05:41→21:15)
[2018-10-12 05:53] LABS: GLUCOMETER DEV NAME(LOC) 5N.2; GLUCOSE,POINT OF CARE 285 MG/DL (70-110)
[2018-10-12] MEDS: OXYGEN THERAPY IH SCH ×2 (08:00→21:06)
[2018-10-12 08:30] VITALS: BP 126/75
[2018-10-12] MEDS: CarBAMazepine 200 MG TABLET PO SCH (08:58)
[2018-10-12] MEDS: ARIPiprazole 10 MG TABLET PO SCH (08:58)
[2018-10-12] MEDS: PANTOPRAZOLE SODIUM 40 MG/VIAL IVP SCH (08:59)
[2018-10-12] MEDS: VENLAFAXINE HCL 75 MG ER CAPSULE PO SCH (08:59)
[2018-10-12] MEDS: ASPIRIN 81 MG EC TABLET PO SCH (08:59)
[2018-10-12] MEDS: LevETIRAcetam 500 MG TABLET PO SCH ×2 (08:59→21:07)
[2018-10-12] MEDS: LISINOPRIL 20 MG TABLET PO SCH (08:59)
[2018-10-12] MEDS: PHENYTOIN SODIUM 100 MG ER CAPSULE PO SCH (08:59)
[2018-10-12] MEDS: INSULIN GLARGINE,HUM.REC.ANLOG 100 UNITS/ML SQ SCH ×2 (09:11→21:12)
[2018-10-12 11:23] VITALS: BP 129/54
[2018-10-12 11:54] LABS: GLUCOMETER DEV NAME(LOC) 5S.2; GLUCOSE,POINT OF CARE 247 MG/DL (70-110)
[2018-10-12 12:00] VITALS: BP 117/76
[2018-10-12 18:44] LABS: GLUCOMETER DEV NAME(LOC) 5S.2; GLUCOSE,POINT OF CARE 370 MG/DL (70-110)
[2018-10-12 19:37] VITALS: BP 115/65
[2018-10-12] MEDS: ATORVASTATIN CALCIUM 10 MG TABLET PO SCH (21:08)
[2018-10-12] MEDS: MIRTAZAPINE 15 MG TABLET PO SCH (21:08)
[2018-10-12] MEDS: TraMADol HCL 50 MG TABLET PO PRN (21:28)
[2018-10-12 23:15] VITALS: BP 110/65
[2018-10-12 23:44] LABS: GLUCOMETER DEV NAME(LOC) 5N.2; GLUCOSE,POINT OF CARE 297 MG/DL (70-110)
[2018-10-13 03:24] VITALS: BP 109/63
[2018-10-13 07:19] VITALS: BP 105/66
[2018-10-13] MEDS: OXYGEN THERAPY IH SCH (08:00)
[2018-10-13] MEDS: PANTOPRAZOLE SODIUM 40 MG/VIAL IVP SCH (09:09)
[2018-10-13] MEDS: PHENYTOIN SODIUM 100 MG ER CAPSULE PO SCH (09:09)
[2018-10-13] MEDS: ARIPiprazole 10 MG TABLET PO SCH (09:10)
[2018-10-13] MEDS: VENLAFAXINE HCL 75 MG ER CAPSULE PO SCH (09:10)
[2018-10-13] MEDS: CarBAMazepine 200 MG TABLET PO SCH (09:10)
[2018-10-13] MEDS: ASPIRIN 81 MG EC TABLET PO SCH (09:10)
[2018-10-13] MEDS: LevETIRAcetam 500 MG TABLET PO SCH ×2 (09:10→20:17)
[2018-10-13] MEDS: LISINOPRIL 20 MG TABLET PO SCH (09:11)
[2018-10-13] MEDS: INSULIN GLARGINE,HUM.REC.ANLOG 100 UNITS/ML SQ SCH ×2 (09:18→20:27)
[2018-10-13] MEDS ORDERED: BISACODYL 10 MG RECTAL RECTAL SUPPOSITORY PR PRN (10:30)
[2018-10-13] MEDS: PANTOPRAZOLE SODIUM 40 MG DR TABLET PO SCH (11:05)
[2018-10-13] MEDS: LACTULOSE 20 GM/30 ML SOLUTION UDCUP PO SCH ×3 (11:05→20:41)
[2018-10-13 11:06] VITALS: BP 102/63
[2018-10-13] MEDS: INSULIN LISPRO 100 UNITS/ML SQ PRN ×2 (11:51→17:44)
[2018-10-13 14:04] LABS: GLUCOMETER DEV NAME(LOC) 5S.2; GLUCOSE,POINT OF CARE 75 MG/DL (70-110)
[2018-10-13 14:04] LABS: GLUCOMETER DEV NAME(LOC) 5N.2; GLUCOSE,POINT OF CARE 384 MG/DL (70-110)
[2018-10-13 14:04] LABS: GLUCOMETER DEV NAME(LOC) 5N.2; GLUCOSE,POINT OF CARE 357 MG/DL (70-110)
[2018-10-13 15:23] VITALS: BP 109/55
[2018-10-13 18:44] LABS: GLUCOMETER DEV NAME(LOC) 5S.2; GLUCOSE,POINT OF CARE 192 MG/DL (70-110)
[2018-10-13] MEDS: MIRTAZAPINE 15 MG TABLET PO SCH (20:16)
[2018-10-13] MEDS: ATORVASTATIN CALCIUM 10 MG TABLET PO SCH (20:16)
[2018-10-13 20:42] VITALS: BP 105/73
[2018-10-14 00:46] VITALS: BP 112/69
[2018-10-14 02:34] LABS: GLUCOMETER DEV NAME(LOC) 5S.2; GLUCOSE,POINT OF CARE 198 MG/DL (70-110)
[2018-10-14 05:53] VITALS: BP 108/60
[2018-10-14] MEDS: INSULIN LISPRO 100 UNITS/ML SQ PRN (06:19)
[2018-10-14 06:29] LABS: GLUCOMETER DEV NAME(LOC) 5N.2; GLUCOSE,POINT OF CARE 168 MG/DL (70-110)
[2018-10-14 07:45] VITALS: BP 111/64
[2018-10-14] MEDS: OXYGEN THERAPY IH SCH (08:00)
[2018-10-14] MEDS: LACTULOSE 20 GM/30 ML SOLUTION UDCUP PO SCH (08:52)
[2018-10-14] MEDS: PHENYTOIN SODIUM 100 MG ER CAPSULE PO SCH (08:52)
[2018-10-14] MEDS: PANTOPRAZOLE SODIUM 40 MG DR TABLET PO SCH (08:53)
[2018-10-14] MEDS: ASPIRIN 81 MG EC TABLET PO SCH (08:53)
[2018-10-14] MEDS: VENLAFAXINE HCL 75 MG ER CAPSULE PO SCH (08:53)
[2018-10-14] MEDS: LevETIRAcetam 500 MG TABLET PO SCH (08:53)
[2018-10-14] MEDS: CarBAMazepine 200 MG TABLET PO SCH (08:54)
[2018-10-14] MEDS: ARIPiprazole 10 MG TABLET PO SCH (08:54)
[2018-10-14] MEDS: LISINOPRIL 20 MG TABLET PO SCH (09:00)
[2018-10-14] MEDS: INSULIN GLARGINE,HUM.REC.ANLOG 100 UNITS/ML SQ SCH (11:35)
[2018-10-14 11:36] VITALS: BP 111/64
[2018-10-15 00:24] LABS: GLUCOMETER DEV NAME(LOC) 5N.2; GLUCOSE,POINT OF CARE 350 MG/DL (70-110)
== END 2018-10-14 12:55 | DRG 254 ==
LOC: EMS 14:45 → 6N 10-09 02:30 → 5N 10-09 17:05
PROVIDERS: ADMIT Internal Medicine; ATTEND Internal Medicine
PROC: 0DC98ZZ Extirpation of Matter from Duodenum, Via Natural or Artificial Opening Endoscopic (ICD-10-PCS; principal; 2018-10-09 10:30)
DX: T18.3XXA Foreign body in small intestine, initial encounter (principal); R45.851 Suicidal ideations; F33.3 Major depressive disorder, recurrent, severe with psychotic symptoms; E66.01 Morbid (severe) obesity due to excess calories; E11.9 Type 2 diabetes mellitus without complications; I10 Essential (primary) hypertension; X58.XXXA Exposure to other specified factors, initial encounter; S36.33XA Laceration of stomach, initial encounter; S36.430A Laceration of duodenum, initial encounter; S11.21XA Laceration without foreign body of pharynx and cervical esophagus, initial encounter; F60.3 Borderline personality disorder; G40.909 Epilepsy, unspecified, not intractable, without status epilepticus; K59.09 Other constipation; Z91.5 Personal history of self-harm; Z88.8 Allergy status to other drugs, medicaments and biological substances; Y93.89 Activity, other specified; Y92.89 Other specified places as the place of occurrence of the external cause; Y99.8 Other external cause status; Z68.34 Body mass index [BMI] 34.0-34.9, adult
CPT/HCPCS: 74018; 74019; 74177; 84443; 87081; 88300; 96365; C9113; G0378; G0480; J0330; J1100; J1815; J2250; J2405; J2704; J3010; J3480; J3490; J7050

== ENCOUNTER 2018-10-25 12:13 | Emergency (ER) | payer MEDICAID ==
[~2018-10-25] VITALS: Ht 167.6 cm; Wt 86.8 kg
[~2018-10-25 12:13] MED LIST changes: -BRIV50TA PO; -LORA10I IM; +PANT40TA25 PO; -ZOLP10TA2 PO
[2018-10-25 13:09] LABS: GLUCOSE,POINT OF CARE 217 MG/DL (70-110)
[2018-10-25 13:32] LABS: BASOPHILS % (AUTO) 0.7 % (0.0-2.0); EOSINOPHILS % (AUTO) 0.9 % (1.0-6.0); HEMATOCRIT 36.8 % (36-46); HEMOGLOBIN 12.5 g/dL (12.0-16.0); LYMPHOCYTES # (AUTO) 1.2 K/uL (1.0-4.8); LYMPHOCYTES % (AUTO) 30.1 % (22.0-44.0); MEAN CORPUSCULAR HEMOGLOBIN 33.5 pg (26.0-34.0); MEAN CORPUSCULAR VOLUME 99 fL (80-100); MONOCYTES # (AUTO) 0.3 K/uL (0.1-1.0); MONOCYTES % (AUTO) 8.1 % (2.0-9.0); NEUTROPHILS # (AUTO) 2.4 K/uL (1.8-7.7); NEUTROPHILS % (AUTO) 60.2 % (40.0-70.0); PLATELET COUNT (AUTO) 235 K/uL (150-450); RED BLOOD CELL COUNT(AUTO) 3.73 MIL/uL (4.00-5.20); RED CELL DISTRIBUTION WIDTH 12.9 % (11.5-14.5)
[2018-10-25 13:47] LABS: ANION GAP 9 mmol/L (8-16); CARBON DIOXIDE 28 mmol/L (22-29); CHLORIDE 101 mmol/L (98-107); CREATININE 0.61 mg/dL (0.60-1.30); GLOMERULAR FILTR. RATE CALC > 60 mL/min (>60); GLUCOSE,RANDOM 222 mg/dL (70-110); POTASSIUM 4.2 mmol/L (3.5-5.1); SODIUM SERUM 138 mmol/L (136-145); UREA NITROGEN, BLOOD 9 mg/dL (7-18)
[2018-10-25 13:50] LABS: ALANINE AMINOTRANSFERASE 39 U/L (12-78); ALBUMIN 3.1 g/dL (3.4-5.0); ALKALINE PHOSPHATASE 96 U/L (46-116); ASPARTATE AMINOTRANSFERASE 28 U/L (15-37); BILIRUBIN,TOTAL 0.3 mg/dL (0.1-1.0)
[2018-10-25 13:51] LABS: ACETAMINOPHEN < 2 mcg/mL (10-30)
[2018-10-25 14:22] LABS: AMPHET/METH SCREEN,URINE NEGATIVE (NEGATIVE); BARBITURATE SCREEN, URINE NEGATIVE (NEGATIVE); BENZODIAZEPINES SCREEN,URINE NEGATIVE (NEGATIVE); CANNABINOID SCREEN,URINE NEGATIVE (NEGATIVE); COCAINE SCREEN,URINE NEGATIVE (NEGATIVE); METHADONE SCREEN, URINE NEGATIVE (NEGATIVE); OPIATE SCREEN,URINE NEGATIVE (NEGATIVE)
[2018-10-25 14:23] LABS: PHENCYCLIDINE SCREEN,URINE NEGATIVE (NEGATIVE)
[2018-10-25 14:37] LABS: SALICYLATE 1.4 mg/dL (2.8-20.0)
[2018-10-25 18:07] VITALS: BP 131/82
== END 2018-10-25 19:14 | disposition home or self-care (01) ==
LOC: EMS 12:15
DX: T18.128A Food in esophagus causing other injury, initial encounter (principal); E11.9 Type 2 diabetes mellitus without complications; E78.00 Pure hypercholesterolemia, unspecified; I10 Essential (primary) hypertension; F32.9 Major depressive disorder, single episode, unspecified; Z88.8 Allergy status to other drugs, medicaments and biological substances; Z79.84 Long term (current) use of oral hypoglycemic drugs; Z79.4 Long term (current) use of insulin; Z79.899 Other long term (current) drug therapy; Z79.82 Long term (current) use of aspirin; Y92.89 Other specified places as the place of occurrence of the external cause
CPT/HCPCS: 36415; 70360; 70450; 71045; 74018; 80053; 80307; 82948; 82962; 85025; 99284; G0480; G0481

== ENCOUNTER 2025-02-17 15:43 | Inpatient (IN) | payer MEDICAID, OTHER ==
[~2025-02-17] VITALS: Ht 167.6 cm; Wt 135.6 kg
[~2025-02-17 15:43] MED LIST changes: -ASCO500 PO; -ASPI81TA87 PO; -ATOR10TA69 PO; -BENZ1LOZ68 PO; +BISA-151 PO; -BISA5TAB12 PO; -CALC-1009 PO; -CARB15DR94 OU; -CARB200T PO; -DIPH25 PO; -FAMO20 PO; -FE PR; -FOLI0.8T PO; -GLIP5 PO; +GUAI-1447 PO; -GUAI100L55 PO; -IBUP-2071 PO; -LACT30L PO; -LISI-618 PO; -LOPE2 PO; +MAGN-169 PO; -MAGOX PO; -METF-445 PO; -MIRT30TA6 PO; -MOM30 PO; -MOME17N NASAL; -MULT-264 PO; -NORG1TAB65 PO; -ONDA4 PO; +PANT-31 PO; -PANT40TA25 PO; -PHENY100 PO; -PROM25 PO; -SIME125C PO
[2025-02-17 17:25] LABS: COVID AG,FIA SOURCE NASAL SWAB
[2025-02-17 17:32] LABS: PLATELET COUNT (AUTO) 250 K/uL (150-450); RED BLOOD CELL COUNT(AUTO) 3.54 MIL/uL (4.00-5.20); RED CELL DISTRIBUTION WIDTH 14.3 % (11.5-14.5); WHITE BLOOD COUNT (AUTO) 6.3 K/uL (4.5-11.0)
[2025-02-17 17:33] LABS: CREATININE 0.73 mg/dL (0.60-1.30); GLOMERULAR FILTR. RATE CALC > 60 mL/min (>60); GLUCOSE,RANDOM 366 mg/dL (70-110); SODIUM SERUM 135 mmol/L (136-145); UREA NITROGEN, BLOOD 12 mg/dL (7-18)
[2025-02-17] MEDS: LORazepam 2 MG/ML VIAL IM ONE (17:40)
[2025-02-17 17:42] LABS: CALCIUM, TOTAL 8.2 mg/dL (8.8-10.5)
[2025-02-17 17:57] LABS: SARS-COV2 (COVID) ANTIGEN,FIA Negative (Negative)
[2025-02-17] MEDS: INSULIN REGULAR, HUMAN 100 UNITS/ML SQ ONE (18:59)
[2025-02-17 19:23] LABS: APPEARANCE,URINE CLEAR (CLEAR); GLUCOSE, URINE (UA) >=1000 mg/dL (NEGATIVE); LEUKOCYTE ESTERASE ,URINE NEGATIVE (NEGATIVE); NITRATE,URINE NEGATIVE (NEGATIVE); OCCULT BLOOD,URINE NEGATIVE (NEGATIVE); PH,URINE DRUG SCREEN 5.5 (5.0-8.0); SPECIFIC GRAVITIY, URINE 1.034 (1.003-1.030)
[2025-02-17 19:29] LABS: ALCOHOL, URINE DRUG SCREEN NEGATIVE (NEGATIVE); AMPHET/METH SCREEN,URINE NEGATIVE (NEGATIVE); BARBITURATE SCREEN, URINE NEGATIVE (NEGATIVE); CANNABINOID SCREEN,URINE NEGATIVE (NEGATIVE); COCAINE SCREEN,URINE NEGATIVE (NEGATIVE); METHADONE SCREEN, URINE NEGATIVE (NEGATIVE)
[2025-02-17 19:33] VITALS: O2SAT 95
[2025-02-17 19:36] LABS: SQUAMOUS EPITHELIAL CELL,UR Rare /LPF (None Seen)
[2025-02-17 19:55] LABS: GLUCOMETER DEV NAME(LOC) ERT.7; GLUCOSE,POINT OF CARE 361 MG/DL (70-110)
[2025-02-17] MEDS: PNEUMOCOCCAL VACCINE POLYVALENT 0.5 ML SYRINGE [PPSV23] IM. ONE (23:45)
[2025-02-18 06:25] LABS: GLUCOMETER DEV NAME(LOC) BV3N.2; GLUCOSE,POINT OF CARE 139 MG/DL (70-110)
[2025-02-18] MEDS ORDERED: GLUCAGON,HUMAN RECOMBINANT 1 MG VIAL IM PRN (06:30)
[2025-02-18] MEDS ORDERED: MAGNESIUM HYDROXIDE SUSPENSION 30 ML UDCUP PO PRN (06:30)
[2025-02-18] MEDS ORDERED: ALBUTEROL SULFATE HFA 90 MCG/PUFF 8 GM INHALER IH PRN (06:30)
[2025-02-18] MEDS ORDERED: OMEPRAZOLE 20 MG CAPSULE PO PRN (06:30)
[2025-02-18] MEDS ORDERED: ACETAMINOPHEN 325 MG TABLET PO PRN (06:30)
[2025-02-18] MEDS ORDERED: PETROLATUM,WHITE 28 GM JELLY TP PRN (06:30)
[2025-02-18] MEDS ORDERED: BENZOCAINE/MENTHOL [CEPACOL] LOZENGE PO PRN (06:30)
[2025-02-18] MEDS ORDERED: LOPERAMIDE HCL 2 MG CAPSULE PO PRN (06:30)
[2025-02-18] MEDS ORDERED: BACITRACIN 28 GM OINTMENT TP PRN (06:30)
[2025-02-18] MEDS ORDERED: DOCUSATE SODIUM 100 MG CAPSULE PO PRN (06:30)
[2025-02-18] MEDS ORDERED: MAG HYDROX/ALUMINUM HYD/SIMETH ES 30 ML SUSPENSION UDCUP PO PRN (06:30)
[2025-02-18] MEDS ORDERED: LORazepam 2 MG/ML VIAL ONE (08:13)
[2025-02-18 08:28] VITALS: RESP 18
[2025-02-18] MEDS: PHENYTOIN SODIUM 100 MG ER CAPSULE PO SCH (08:43)
[2025-02-18] MEDS: ASPIRIN 81 MG DR TABLET PO SCH (08:44)
[2025-02-18] MEDS: INSULIN GLARGINE,HUM.REC.ANLOG 100 UNITS/ML SQ SCH (08:48)
[2025-02-18] MEDS: LORazepam 2 MG/ML VIAL IM ONE (09:13)
[2025-02-18] MEDS ORDERED: ZOLPIDEM TARTRATE 10 MG TABLET PO PRN (09:15)
[2025-02-18] MEDS: DIVALPROEX SODIUM 500 MG DR TABLET PO SCH ×2 (11:59→21:00)
[2025-02-18] MEDS: INSULIN LISPRO 100 UNITS/ML SQ PRN (12:34)
[2025-02-18 12:56] LABS: GLUCOMETER DEV NAME(LOC) BV3N.2; GLUCOSE,POINT OF CARE 322 MG/DL (70-110)
[2025-02-18 17:26] LABS: GLUCOMETER DEV NAME(LOC) BV3N.2; GLUCOSE,POINT OF CARE 65 MG/DL (70-110)
[2025-02-18 17:26] LABS: GLUCOMETER DEV NAME(LOC) BV3N.2; GLUCOSE,POINT OF CARE 77 MG/DL (70-110)
[2025-02-18 19:06] LABS: GLUCOMETER DEV NAME(LOC) BV3N.2; GLUCOSE,POINT OF CARE 242 MG/DL (70-110)
[2025-02-18] MEDS: ATORVASTATIN CALCIUM 10 MG TABLET PO SCH (21:00)
[2025-02-19 06:30] VITALS: RESP 18
[2025-02-19 07:05] LABS: GLUCOMETER DEV NAME(LOC) BV3N.2; GLUCOSE,POINT OF CARE 244 MG/DL (70-110)
[2025-02-19 08:24] VITALS: BP 102/59; PULSE 108; RESP 17; TEMP 97.7; O2SAT 100
[2025-02-19 09:40] LABS: ASPARTATE AMINOTRANSFERASE 22 U/L (15-37); CALCIUM, TOTAL 8.0 mg/dL (8.8-10.5); CHOL/HDL RATIO 3.0 (3.9-5.7); CREATININE 0.98 mg/dL (0.60-1.30); GLOMERULAR FILTR. RATE CALC > 60 mL/min (>60); GLUCOSE,RANDOM 266 mg/dL (70-110); LDL CHOL (CALC.) 104 mg/dL (0-130); PHOSPHORUS 3.4 mg/dL (2.5-4.9); SODIUM SERUM 136 mmol/L (136-145); TOTAL PROTEIN, SERUM 5.8 g/dL (6.4-8.2); UREA NITROGEN, BLOOD 14 mg/dL (7-18)
[2025-02-19 12:31] LABS: GLUCOMETER DEV NAME(LOC) BV3N.2; GLUCOSE,POINT OF CARE 179 MG/DL (70-110)
[2025-02-19 12:58] VITALS: BP 102/59; PULSE 102; RESP 17; TEMP 98.5; O2SAT 100
[2025-02-19] MEDS: DIVALPROEX SODIUM 500 MG DR TABLET PO SCH (16:14)
[2025-02-19 17:25] LABS: GLUCOMETER DEV NAME(LOC) BV3N.2; GLUCOSE,POINT OF CARE 259 MG/DL (70-110)
[2025-02-19] MEDS: ONDANSETRON 4 MG TABLET PO PRN (17:33)
[2025-02-19 17:52] VITALS: BP 144/88; PULSE 97; RESP 18; TEMP 97.7; O2SAT 98
[2025-02-19 20:30] VITALS: BP 144/88; PULSE 97; RESP 18; TEMP 97.7; O2SAT 98
[2025-02-19 22:25] LABS: GLUCOMETER DEV NAME(LOC) BV3N.2; GLUCOSE,POINT OF CARE 240 MG/DL (70-110)
[2025-02-20 07:11] LABS: GLUCOMETER DEV NAME(LOC) BV3N.2; GLUCOSE,POINT OF CARE 207 MG/DL (70-110)
[2025-02-20 08:18] VITALS: BP 100/54; PULSE 104; RESP 18; TEMP 97.3
[2025-02-20 08:32] LABS: PLATELET COUNT (AUTO) 236 K/uL (150-450); RED BLOOD CELL COUNT(AUTO) 3.27 MIL/uL (4.00-5.20); RED CELL DISTRIBUTION WIDTH 14.4 % (11.5-14.5); WHITE BLOOD COUNT (AUTO) 2.9 K/uL (4.5-11.0)
[2025-02-20 08:49] LABS: VALPROIC ACID 19.0 mcg/mL (50-100)
[2025-02-20 09:26] LABS: GLUCOMETER DEV NAME(LOC) BV3N.2; GLUCOSE,POINT OF CARE 91 MG/DL (70-110)
[2025-02-20] MEDS: IBUPROFEN 600 MG TABLET PO PRN (10:04)
[2025-02-20 12:16] LABS: GLUCOMETER DEV NAME(LOC) BV3N.2; GLUCOSE,POINT OF CARE 193 MG/DL (70-110)
[2025-02-20 17:15] LABS: GLUCOMETER DEV NAME(LOC) BV3N.2; GLUCOSE,POINT OF CARE 260 MG/DL (70-110)
[2025-02-20 20:25] VITALS: BP 105/64; PULSE 85; RESP 17; TEMP 98.1; O2SAT 98
[2025-02-20] MEDS: BENZOCAINE/MENTHOL/ZINC CL 20% 11.9 GM GEL TP PRN (22:07)
[2025-02-20 22:41] LABS: GLUCOMETER DEV NAME(LOC) BV3N.2; GLUCOSE,POINT OF CARE 203 MG/DL (70-110)
[2025-02-20 23:10] VITALS: BP 105/64; PULSE 85; RESP 17; TEMP 98.1; O2SAT 98
[2025-02-20 23:11] VITALS: BP 105/64; PULSE 85; RESP 17; TEMP 98.1; O2SAT 98
[2025-02-21 07:01] LABS: GLUCOMETER DEV NAME(LOC) BV3N.2; GLUCOSE,POINT OF CARE 66 MG/DL (70-110)
[2025-02-21 07:25] LABS: GLUCOMETER DEV NAME(LOC) BV3N.2; GLUCOSE,POINT OF CARE 101 MG/DL (70-110)
[2025-02-21 08:24] VITALS: BP 106/73; PULSE 102; RESP 18; TEMP 98.1; O2SAT 97
[2025-02-21 12:20] LABS: GLUCOMETER DEV NAME(LOC) BV3N.2; GLUCOSE,POINT OF CARE 198 MG/DL (70-110)
[2025-02-21 17:11] LABS: GLUCOMETER DEV NAME(LOC) BV3N.2; GLUCOSE,POINT OF CARE 133 MG/DL (70-110)
[2025-02-21] MEDS: DIVALPROEX SODIUM 250 MG DR TABLET PO SCH (17:15)
[2025-02-21] MEDS: GABAPENTIN 300 MG CAPSULE PO PRN (18:21)
[2025-02-21 22:15] LABS: GLUCOMETER DEV NAME(LOC) BV3N.2; GLUCOSE,POINT OF CARE 189 MG/DL (70-110)
[2025-02-21 22:40] VITALS: BP 104/72; PULSE 88; RESP 16; TEMP 97.4; O2SAT 100
[2025-02-21 22:55] VITALS: BP 104/72; PULSE 88; RESP 16; TEMP 97.4; O2SAT 100
[2025-02-22 06:40] LABS: GLUCOMETER DEV NAME(LOC) BV3N.2; GLUCOSE,POINT OF CARE 39 MG/DL (70-110)
[2025-02-22 06:43] VITALS: BP 129/76; PULSE 86; RESP 18; TEMP 97; O2SAT 100
[2025-02-22 06:45] LABS: GLUCOMETER DEV NAME(LOC) BV3N.2; GLUCOSE,POINT OF CARE 73 MG/DL (70-110)
[2025-02-22 07:31] LABS: GLUCOMETER DEV NAME(LOC) BV3N.2; GLUCOSE,POINT OF CARE 119 MG/DL (70-110)
[2025-02-22 08:33] VITALS: BP 105/61; PULSE 97; RESP 18; TEMP 97.9; O2SAT 96
[2025-02-22 09:03] LABS: PLATELET COUNT (AUTO) 254 K/uL (150-450); RED BLOOD CELL COUNT(AUTO) 3.56 MIL/uL (4.00-5.20); RED CELL DISTRIBUTION WIDTH 14.3 % (11.5-14.5); WHITE BLOOD COUNT (AUTO) 2.5 K/uL (4.5-11.0)
[2025-02-22 09:17] LABS: VALPROIC ACID 30.0 mcg/mL (50-100)
[2025-02-22 09:18] VITALS: BP 105/61; PULSE 97; RESP 18; TEMP 97.9; O2SAT 96
[2025-02-22 17:55] LABS: GLUCOMETER DEV NAME(LOC) BV3N.2; GLUCOSE,POINT OF CARE 122 MG/DL (70-110)
[2025-02-22 20:21] VITALS: BP 110/65; PULSE 90; RESP 18; TEMP 97.9; O2SAT 100
[2025-02-22 20:31] LABS: GLUCOMETER DEV NAME(LOC) BV3N.2; GLUCOSE,POINT OF CARE 177 MG/DL (70-110)
[2025-02-22] MEDS ORDERED: LEVE-71 PO (22:56)
[2025-02-22] MEDS ORDERED: QUET100T34 PO (22:56)
[2025-02-22] MEDS ORDERED: QUET25TA36 PO (22:56)
[2025-02-22] MEDS ORDERED: DIVA-111 PO (22:56)
[2025-02-23 00:23] VITALS: BP 104/66; PULSE 96; RESP 18; TEMP 97.6; O2SAT 97
[2025-02-23 08:31] VITALS: BP 110/75; PULSE 88; RESP 17; TEMP 97.7; O2SAT 99
[2025-02-23 08:39] LABS: VALPROIC ACID 36.0 mcg/mL (50-100)
[2025-02-23] MEDS ORDERED: DEXTROSE 40% LEMON 37.5 GM/TUBE GEL [15 GM GLUCOSE] PO ONE (08:44)
[2025-02-23 12:51] LABS: GLUCOMETER DEV NAME(LOC) BV3N.2; GLUCOSE,POINT OF CARE 137 MG/DL (70-110)
[2025-02-26 10:07] LABS: CHLORPROMAZINE <20 ng/mL (30-300)
[2025-02-26 12:26] LABS: GLUCOMETER DEV NAME(LOC) BV3N.2; GLUCOSE,POINT OF CARE 302 MG/DL (70-110)
[2025-02-26 12:26] LABS: GLUCOMETER DEV NAME(LOC) BV3N.2; GLUCOSE,POINT OF CARE 193 MG/DL (70-110)
== END 2025-02-23 16:05 | DRG 750 ==
LOC: EMS 15:43 → B3A 20:33
PROVIDERS: ADMIT Psychiatry & Neurology Psychiatry; ATTEND Psychiatry & Neurology Psychiatry
PROC: GZ56ZZZ Individual Psychotherapy, Supportive (ICD-10-PCS; 2025-02-19)
PROC: GZHZZZZ Group Psychotherapy (ICD-10-PCS; principal; 2025-02-23)
PROC: GZ51ZZZ Individual Psychotherapy, Behavioral (ICD-10-PCS; 2025-02-23)
DX: F25.0 Schizoaffective disorder, bipolar type (principal); R45.851 Suicidal ideations; G40.909 Epilepsy, unspecified, not intractable, without status epilepticus; Z20.822 Contact with and (suspected) exposure to COVID-19; I10 Essential (primary) hypertension; K59.00 Constipation, unspecified; F41.9 Anxiety disorder, unspecified; G47.00 Insomnia, unspecified; E66.01 Morbid (severe) obesity due to excess calories; E10.65 Type 1 diabetes mellitus with hyperglycemia; F60.3 Borderline personality disorder; E78.00 Pure hypercholesterolemia, unspecified; Z60.8 Other problems related to social environment; Z68.42 Body mass index [BMI] 45.0-49.9, adult; Z56.0 Unemployment, unspecified; Z79.4 Long term (current) use of insulin; Z79.84 Long term (current) use of oral hypoglycemic drugs; Z88.1 Allergy status to other antibiotic agents
CPT/HCPCS: 80048; 80053; 80061; 80156; 80164; 80185; 80307; 80342; 81001; 82962; 83036; 83735; 84100; 84443; 84703; 85025; 87081; 96372; 99285; G0480; G0482; J1200; J1610; J1630; J1815; J2060; J3230; Q0162

== ENCOUNTER 2025-02-18 20:21 | Emergency (ER) | payer MEDICAID, OTHER ==
[~2025-02-18] VITALS: Ht 170.2 cm; Wt 125.0 kg
[2025-02-18 20:30] VITALS: TEMP 97.905272
[2025-02-18 21:09] LABS: CALCIUM, TOTAL 8.0 mg/dL (8.8-10.5); CREATININE 0.96 mg/dL (0.60-1.30); GLOMERULAR FILTR. RATE CALC > 60 mL/min (>60); GLUCOSE,RANDOM 251 mg/dL (70-110); SODIUM SERUM 130 mmol/L (136-145); UREA NITROGEN, BLOOD 17 mg/dL (7-18)
[2025-02-18 21:15] LABS: ASPARTATE AMINOTRANSFERASE 26.0 U/L (15-37); TOTAL PROTEIN, SERUM 5.6 g/dL (6.4-8.2)
[2025-02-18 21:28] LABS: PLATELET COUNT (AUTO) 214 K/uL (150-450); RED BLOOD CELL COUNT(AUTO) 3.13 MIL/uL (4.00-5.20); RED CELL DISTRIBUTION WIDTH 14.1 % (11.5-14.5); WHITE BLOOD COUNT (AUTO) 4.4 K/uL (4.5-11.0)
[2025-02-19] MEDS: SODIUM CHLORIDE 0.9% 1,000 ML IV ONE (00:01)
[2025-02-19 00:51] VITALS: BP 111/62; PULSE 96; RESP 18; O2SAT 99
== END 2025-02-19 02:12 ==
LOC: EMS 20:21
DX: I95.9 Hypotension, unspecified (principal); E78.00 Pure hypercholesterolemia, unspecified; E86.0 Dehydration; I10 Essential (primary) hypertension; E11.9 Type 2 diabetes mellitus without complications; F32.A Depression, unspecified; Z88.8 Allergy status to other drugs, medicaments and biological substances
CPT/HCPCS: 80048; 80076; 85025; 99283

== ENCOUNTER 2025-02-19 08:46 | Emergency (ER) | payer OTHER ==
[~2025-02-19] VITALS: Ht 167.6 cm; Wt 124.0 kg
[2025-02-19 08:56] VITALS: BP 116/39; PULSE 109; RESP 16; TEMP 97.7; O2SAT 100
[2025-02-19] MEDS: ACETAMINOPHEN 500 MG TABLET PO ONE (10:02)
== END 2025-02-19 11:13 | disposition home or self-care (01) ==
LOC: EMS 08:46
DX: S02.5XXA Fracture of tooth (traumatic), initial encounter for closed fracture (principal); E11.9 Type 2 diabetes mellitus without complications; E66.9 Obesity, unspecified; E78.00 Pure hypercholesterolemia, unspecified; F60.3 Borderline personality disorder; I10 Essential (primary) hypertension; Z88.8 Allergy status to other drugs, medicaments and biological substances; F32.A Depression, unspecified; W06.XXXA Fall from bed, initial encounter; Y93.89 Activity, other specified; Y92.89 Other specified places as the place of occurrence of the external cause; Y99.9 Unspecified external cause status
CPT/HCPCS: 99283

== ENCOUNTER 2025-06-21 17:52 | Inpatient (IN) | payer MEDICAID, OTHER ==
[~2025-06-21] VITALS: Ht 167.6 cm; Wt 108.4 kg
[~2025-06-21 17:52] MED LIST changes: -ACET-2247 PO; -BISA-151 PO; +DIVA-111 PO; -GUAI-1447 PO; -HYDR25SU38 PR; -HYPR15DR23 OU; -INSLAN SQ; -INSU100C14 SQ; -KETO5DRO75 OU; +LEVE-71 PO; -MAGN-169 PO; -PANT-31 PO; +QUET100T34 PO; +QUET25TA36 PO; -VENL-67 PO
[2025-06-21] MEDS ORDERED: INSULIN REGULAR, HUMAN 100 UNITS/ML IVP ONE (19:45)
[2025-06-21 19:48] LABS: COVID AG,FIA SOURCE NASAL SWAB
[2025-06-21 19:51] LABS: APPEARANCE,URINE CLEAR (CLEAR); GLUCOSE, URINE (UA) >=1000 mg/dL (NEGATIVE); LEUKOCYTE ESTERASE ,URINE LARGE (NEGATIVE); NITRATE,URINE NEGATIVE (NEGATIVE); OCCULT BLOOD,URINE NEGATIVE (NEGATIVE); PH,URINE DRUG SCREEN 5.5 (5.0-8.0); SPECIFIC GRAVITIY, URINE 1.022 (1.003-1.030)
[2025-06-21] MEDS: INSULIN REGULAR, HUMAN 100 UNITS/ML SQ ONE (19:54)
[2025-06-21 19:58] LABS: AMPHET/METH SCREEN,URINE NEGATIVE (NEGATIVE); BARBITURATE SCREEN, URINE NEGATIVE (NEGATIVE); CANNABINOID SCREEN,URINE NEGATIVE (NEGATIVE); COCAINE SCREEN,URINE NEGATIVE (NEGATIVE); METHADONE SCREEN, URINE NEGATIVE (NEGATIVE)
[2025-06-21 20:00] LABS: GLUCOMETER DEV NAME(LOC) ER.7; GLUCOSE,POINT OF CARE 271 MG/DL (70-110)
[2025-06-21 20:00] LABS: ALCOHOL, URINE DRUG SCREEN NEGATIVE (NEGATIVE)
[2025-06-21 20:06] LABS: SARS-COV2 (COVID) ANTIGEN,FIA Negative (Negative)
[2025-06-21 20:07] LABS: SQUAMOUS EPITHELIAL CELL,UR Rare /LPF (None Seen)
[2025-06-21 20:11] LABS: PLATELET COUNT (AUTO) 281 K/uL (150-450); RED BLOOD CELL COUNT(AUTO) 3.86 MIL/uL (4.00-5.20); RED CELL DISTRIBUTION WIDTH 13.1 % (11.5-14.5); WHITE BLOOD COUNT (AUTO) 3.6 K/uL (4.5-11.0)
[2025-06-21 20:18] LABS: CALCIUM, TOTAL 9.2 mg/dL (8.8-10.5); CREATININE 0.67 mg/dL (0.60-1.30); GLOMERULAR FILTR. RATE CALC > 60 mL/min (>60); GLUCOSE,RANDOM 274 mg/dL (70-110); SODIUM SERUM 137 mmol/L (136-145); UREA NITROGEN, BLOOD 10 mg/dL (7-18)
[2025-06-21 20:59] LABS: RBC MORPHOLOGY COMMENT NORMAL RBC MORPH
[2025-06-21] MEDS: SODIUM CHLORIDE 0.9% 1,000 ML IV ONE (21:00)
[2025-06-21] MEDS: CefTRIAXone 1 GM/DEXTROSE 50 ML IV ONE (21:45)
[2025-06-21] MEDS: CEPHALEXIN MONOHYDRATE 500 MG CAPSULE PO ONE (21:58)
[2025-06-22 00:48] VITALS: O2SAT 98
[2025-06-22 01:11] LABS: GLUCOMETER DEV NAME(LOC) ER.7; GLUCOSE,POINT OF CARE 188 MG/DL (70-110)
[2025-06-22] MEDS: ZOLPIDEM TARTRATE 10 MG TABLET PO PRN (02:50)
[2025-06-22 03:29] VITALS: BP 110/68; PULSE 99; RESP 17; TEMP 98.1
[2025-06-22] MEDS ORDERED: OMEPRAZOLE 20 MG CAPSULE PO PRN (06:30)
[2025-06-22] MEDS ORDERED: BENZOCAINE/MENTHOL [CEPACOL] LOZENGE PO PRN (06:30)
[2025-06-22] MEDS ORDERED: MAGNESIUM HYDROXIDE SUSPENSION 30 ML UDCUP PO PRN (06:30)
[2025-06-22] MEDS ORDERED: MAG HYDROX/ALUMINUM HYD/SIMETH ES 30 ML SUSPENSION UDCUP PO PRN (06:30)
[2025-06-22] MEDS ORDERED: ALBUTEROL SULFATE HFA 90 MCG/PUFF 8 GM INHALER IH PRN (06:30)
[2025-06-22] MEDS ORDERED: LOPERAMIDE HCL 2 MG CAPSULE PO PRN (06:30)
[2025-06-22] MEDS ORDERED: GLUCAGON,HUMAN RECOMBINANT 1 MG VIAL IM PRN (06:30)
[2025-06-22] MEDS ORDERED: PETROLATUM,WHITE 28 GM JELLY TP PRN (06:30)
[2025-06-22] MEDS ORDERED: ACETAMINOPHEN 325 MG TABLET PO PRN (06:30)
[2025-06-22] MEDS ORDERED: DOCUSATE SODIUM 100 MG CAPSULE PO PRN (06:30)
[2025-06-22] MEDS: INSULIN LISPRO 100 UNITS/ML SQ PRN (06:54)
[2025-06-22 07:11] LABS: GLUCOMETER DEV NAME(LOC) BV3S.2; GLUCOSE,POINT OF CARE 341 MG/DL (70-110)
[2025-06-22 08:04] VITALS: BP 118/73; PULSE 112; RESP 18; TEMP 97.4; O2SAT 97
[2025-06-22] MEDS: CEPHALEXIN MONOHYDRATE 500 MG CAPSULE PO SCH (09:04)
[2025-06-22] MEDS: BACITRACIN 28 GM OINTMENT TP PRN (09:05)
[2025-06-22] MEDS: IBUPROFEN 600 MG TABLET PO PRN (09:05)
[2025-06-22 10:05] VITALS: BP 115/70; PULSE 98; RESP 17; TEMP 97.6; O2SAT 98
[2025-06-22] MEDS: ONDANSETRON 4 MG TABLET PO PRN (17:18)
[2025-06-22 18:55] LABS: GLUCOMETER DEV NAME(LOC) BV3S.2; GLUCOSE,POINT OF CARE 420 MG/DL (70-110)
[2025-06-22 20:22] VITALS: BP 128/80; PULSE 88; RESP 18; TEMP 97.5; O2SAT 99
[2025-06-22 21:35] LABS: GLUCOMETER DEV NAME(LOC) BV3S.2; GLUCOSE,POINT OF CARE 256 MG/DL (70-110)
[2025-06-23 08:11] LABS: GLUCOMETER DEV NAME(LOC) BV3S.2; GLUCOSE,POINT OF CARE 360 MG/DL (70-110)
[2025-06-23 08:17] VITALS: BP 125/67; PULSE 100; RESP 16; TEMP 97.9; O2SAT 99
[2025-06-23 08:38] LABS: PLATELET COUNT (AUTO) 250 K/uL (150-450); RED BLOOD CELL COUNT(AUTO) 3.65 MIL/uL (4.00-5.20); RED CELL DISTRIBUTION WIDTH 13.2 % (11.5-14.5); WHITE BLOOD COUNT (AUTO) 3.7 K/uL (4.5-11.0)
[2025-06-23 09:20] LABS: ASPARTATE AMINOTRANSFERASE 20 U/L (15-37); CALCIUM, TOTAL 9.0 mg/dL (8.8-10.5); CHOL/HDL RATIO 2.3 (3.9-5.7); CREATININE 0.75 mg/dL (0.60-1.30); GLOMERULAR FILTR. RATE CALC > 60 mL/min (>60); GLUCOSE,RANDOM 398 mg/dL (70-110); PHOSPHORUS 4.2 mg/dL (2.5-4.9); SODIUM SERUM 135 mmol/L (136-145); TOTAL PROTEIN, SERUM 6.4 g/dL (6.4-8.2); UREA NITROGEN, BLOOD 10 mg/dL (7-18)
[2025-06-23 09:36] LABS: LDL CHOL (CALC.) 59 mg/dL (0-130)
[2025-06-23 12:00] LABS: GLUCOMETER DEV NAME(LOC) BV3S.2; GLUCOSE,POINT OF CARE 360 MG/DL (70-110)
[2025-06-23 18:45] LABS: GLUCOMETER DEV NAME(LOC) BV3S.2; GLUCOSE,POINT OF CARE 268 MG/DL (70-110)
[2025-06-23 20:38] VITALS: BP 125/72; PULSE 83; RESP 16; TEMP 97.6; O2SAT 100
[2025-06-23] MEDS: DIVALPROEX SODIUM 500 MG DR TABLET PO SCH (20:42)
[2025-06-23 21:25] LABS: GLUCOMETER DEV NAME(LOC) BV3S.2; GLUCOSE,POINT OF CARE 327 MG/DL (70-110)
[2025-06-23] MEDS ORDERED: GLUCAGON,HUMAN RECOMBINANT 1 MG VIAL IM PRN (22:15)
[2025-06-24] MEDS: INSULIN LISPRO 100 UNITS/ML SQ PRN (06:32)
[2025-06-24 06:35] LABS: GLUCOMETER DEV NAME(LOC) BV3S.2; GLUCOSE,POINT OF CARE 449 MG/DL (70-110)
[2025-06-24 07:41] LABS: GLUCOMETER DEV NAME(LOC) BV3S.2; GLUCOSE,POINT OF CARE 395 MG/DL (70-110)
[2025-06-24 08:30] VITALS: BP 118/78; PULSE 93; RESP 18; TEMP 97.9; O2SAT 100
[2025-06-24 08:37] VITALS: TEMP 97.3
[2025-06-24] MEDS: NYSTATIN 15 GM POWDER BOTTLE TP SCH (08:40)
[2025-06-24 10:00] VITALS: BP 128/80; PULSE 86; RESP 18; TEMP 98.3; O2SAT 100
[2025-06-24 10:06] LABS: GLUCOMETER DEV NAME(LOC) BV3S.2; GLUCOSE,POINT OF CARE 122 MG/DL (70-110)
[2025-06-24 11:50] LABS: GLUCOMETER DEV NAME(LOC) BV3S.2; GLUCOSE,POINT OF CARE 89 MG/DL (70-110)
[2025-06-24 13:00] LABS: GLUCOMETER DEV NAME(LOC) BV3S.2; GLUCOSE,POINT OF CARE 205 MG/DL (70-110)
[2025-06-24 17:10] LABS: GLUCOMETER DEV NAME(LOC) BV3S.2; GLUCOSE,POINT OF CARE 496 MG/DL (70-110)
[2025-06-24 21:20] VITALS: BP 125/69; PULSE 79; RESP 17; TEMP 97.6; O2SAT 98
[2025-06-24 21:20] LABS: GLUCOMETER DEV NAME(LOC) BV3S.2; GLUCOSE,POINT OF CARE 360 MG/DL (70-110)
[2025-06-25 06:55] LABS: GLUCOMETER DEV NAME(LOC) BV3S.2; GLUCOSE,POINT OF CARE 405 MG/DL (70-110)
[2025-06-25] MEDS ORDERED: GLUCAGON,HUMAN RECOMBINANT 1 MG VIAL IM PRN (08:15)
[2025-06-25] MEDS: INSULIN GLARGINE,HUM.REC.ANLOG 100 UNITS/ML SQ SCH (08:48)
[2025-06-25 09:00] VITALS: BP 119/53; PULSE 104; RESP 18; TEMP 97.5; O2SAT 98
[2025-06-25 10:35] LABS: GLUCOMETER DEV NAME(LOC) BV3S.2; GLUCOSE,POINT OF CARE 425 MG/DL (70-110)
[2025-06-25] MEDS: INSULIN LISPRO 100 UNITS/ML SQ PRN (11:31)
[2025-06-25 11:41] LABS: GLUCOMETER DEV NAME(LOC) BV3S.2; GLUCOSE,POINT OF CARE 372 MG/DL (70-110)
[2025-06-25] MEDS ORDERED: DIVA-112 PO (15:52)
[2025-06-25 20:07] VITALS: BP 120/82; PULSE 90; RESP 17; TEMP 97.5; O2SAT 100
[2025-06-25 21:20] LABS: GLUCOMETER DEV NAME(LOC) BV3S.2; GLUCOSE,POINT OF CARE 243 MG/DL (70-110)
[2025-06-26 07:05] LABS: GLUCOMETER DEV NAME(LOC) BV3S.2; GLUCOSE,POINT OF CARE 255 MG/DL (70-110)
[2025-06-26 08:14] VITALS: BP 120/77; PULSE 102; RESP 18; TEMP 97.4; O2SAT 100
[2025-06-26] MEDS ORDERED: CEPH-558 PO (08:15)
[2025-06-26] MEDS ORDERED: METF-1211 PO (08:20)
[2025-06-26] MEDS: INSULIN GLARGINE,HUM.REC.ANLOG 100 UNITS/ML SQ SCH (08:40)
[2025-06-26 11:46] LABS: GLUCOMETER DEV NAME(LOC) BV3S.2; GLUCOSE,POINT OF CARE 135 MG/DL (70-110)
== END 2025-06-26 14:40 | DRG 761 ==
LOC: EMS 17:54 → B3A 06-22 00:04
PROVIDERS: ADMIT Psychiatry & Neurology Psychiatry; ATTEND Psychiatry & Neurology Psychiatry
DX: F25.9 Schizoaffective disorder, unspecified (principal); R45.851 Suicidal ideations; N39.0 Urinary tract infection, site not specified; E11.9 Type 2 diabetes mellitus without complications; I10 Essential (primary) hypertension; E66.01 Morbid (severe) obesity due to excess calories; G40.909 Epilepsy, unspecified, not intractable, without status epilepticus; Z20.822 Contact with and (suspected) exposure to COVID-19; F41.9 Anxiety disorder, unspecified; K59.00 Constipation, unspecified; G47.00 Insomnia, unspecified; Z68.38 Body mass index [BMI] 38.0-38.9, adult; E78.00 Pure hypercholesterolemia, unspecified; E88.810 Metabolic syndrome; Z91.148 Patient's other noncompliance with medication regimen for other reason
CPT/HCPCS: 80048; 80053; 80061; 80307; 81001; 82962; 83036; 83735; 84100; 84439; 84443; 84481; 84703; 85025; 87081; 87086; 99285; G0480; J0696; J1815; Q0162